=== PATIENT | male | born 1955 | race Caucasian/White ===

== ENCOUNTER 2017-05-06 11:25 | Emergency (ER) | payer MEDICAID ==
[~2017-05-06] VITALS: Ht 175.3 cm; Wt 78.0 kg
[~2017-05-06 11:25] MED LIST: ALBU6.7H INH; ALBUTEROL; AMLO5TAB2 PO; AMOX1TAB64 PO; AZIT250T89 PO; AZIT500T5 PO; CEFD300C37 PO; CLIN150C14 PO; CYCL-259 PO; FLUC200T4 PO; FLUT1DIS IH; FOLI-17 PO; FURO20TA3 PO; HYDR-3237 PO; HYDR-3240 PO; HYDR-3307 PO; HYDR-3341 PO; HYDR453.3 TP; IPRA14.7; LISI-167 PO; METR500T PO; MOTRIN PO; MULT-484 PO; NYST60PO TP; OMEP-110 PO; POTA20TA14 PO; PRED10TA PO; PRED20TA PO; THIA100T6 PO; [UNRECOGNIZED DRUG - REMARK]
[2017-05-06 11:27] VITALS: BP 167/104
[2017-05-06 12:27] LABS: HEMATOCRIT 42.1 % (39.2-51.8); HEMOGLOBIN 14.1 g/dL (13.7-18.0); WHITE BLOOD COUNT 11.7 x10^3/uL (3.4-10)
[2017-05-06] MEDS ORDERED: SODIUM CHLORIDE FLUSH 10ML SYR IVF ONE (12:30)
[2017-05-06] MEDS ORDERED: SODIUM CHLORIDE 0.9% 1,000ML IVBOLUS ONE (12:30)
[2017-05-06 12:41] LABS: ASPARTATE AMINO TRANSFERASE 18 U/L (15-37); BLOOD UREA NITROGEN 19 mg/dL (7-18)
[2017-05-06 12:47] LABS: IS PT STATUS REG ER OR PRE ER? YES
[2017-05-06] MEDS ORDERED: MAALOX/HYOSCYAMINE/LIDOCAINE 45 ML BTL PO ONE (14:30)
[2017-05-06] MEDS ORDERED: MAALOX/HYOSCYAMINE/LIDOCAINE 45 ML BTL ONE (14:31)
== END 2017-05-06 16:20 | disposition home or self-care (01) ==
LOC: ED 12:03
DX: R07.89 Other chest pain (principal); R11.0 Nausea; R06.00 Dyspnea, unspecified; I10 Essential (primary) hypertension; J44.0 Chronic obstructive pulmonary disease with (acute) lower respiratory infection; K21.9 Gastro-esophageal reflux disease without esophagitis; N28.9 Disorder of kidney and ureter, unspecified
CPT/HCPCS: 36415; 74022; 76700; 80053; 83690; 84484; 85025; 85610; 85730; 93005; 96360; 96361; 99285; J7030

== ENCOUNTER 2017-07-01 16:41 | Emergency (ER) | payer MEDICAID ==
[~2017-07-01] VITALS: Ht 177.8 cm; Wt 75.0 kg
[2017-07-01 16:57] VITALS: BP 153/92
== END 2017-07-01 20:20 | disposition home or self-care (01) ==
LOC: ED 16:53
DX: F10.229 Alcohol dependence with intoxication, unspecified (principal); F19.10 Other psychoactive substance abuse, uncomplicated; Z00.00 Encounter for general adult medical examination without abnormal findings; K21.9 Gastro-esophageal reflux disease without esophagitis; I10 Essential (primary) hypertension; J44.9 Chronic obstructive pulmonary disease, unspecified
CPT/HCPCS: 71010; 99283

== ENCOUNTER 2017-07-19 17:30 | Emergency (ER) | payer MEDICAID ==
[~2017-07-19] VITALS: Ht 175.3 cm; Wt 72.6 kg
[2017-07-19 18:26] LABS: HEMATOCRIT 39.7 % (39.2-51.8); HEMOGLOBIN 13.6 g/dL (13.7-18.0); WHITE BLOOD COUNT 8.4 x10^3/uL (3.4-10)
[2017-07-19 18:39] LABS: ASPARTATE AMINO TRANSFERASE 23 U/L (15-37); BLOOD UREA NITROGEN 15 mg/dL (7-18)
[2017-07-19 18:44] LABS: IS PT STATUS REG ER OR PRE ER? YES
[2017-07-19] MEDS ORDERED: MAALOX/HYOSCYAMINE/LIDOCAINE 45 ML BTL PO ONE (19:30)
[2017-07-19] MEDS ORDERED: MAALOX/HYOSCYAMINE/LIDOCAINE 45 ML BTL ONE (19:39)
[2017-07-19 19:47] VITALS: BP 135/73
== END 2017-07-19 21:45 | disposition home or self-care (01) ==
LOC: ED 21:39
DX: R07.89 Other chest pain (principal); R10.13 Epigastric pain; F10.229 Alcohol dependence with intoxication, unspecified; F17.210 Nicotine dependence, cigarettes, uncomplicated; I11.9 Hypertensive heart disease without heart failure; I51.7 Cardiomegaly; J44.9 Chronic obstructive pulmonary disease, unspecified; K21.9 Gastro-esophageal reflux disease without esophagitis; Z59.0 Homelessness
CPT/HCPCS: 36415; 71010; 80053; 81003; 83690; 84484; 85025; 93005; 99285

== ENCOUNTER 2017-08-16 19:44 | Emergency (ER) | payer MEDICAID ==
[~2017-08-16] VITALS: Ht 175.3 cm; Wt 70.0 kg
[2017-08-16 23:11] VITALS: BP 118/80
== END 2017-08-17 00:25 | disposition home or self-care (01) ==
LOC: ED 20:22
DX: F10.20 Alcohol dependence, uncomplicated (principal); G89.29 Other chronic pain; M79.662 Pain in left lower leg; R05 Cough; K21.9 Gastro-esophageal reflux disease without esophagitis; J44.9 Chronic obstructive pulmonary disease, unspecified
CPT/HCPCS: 71010; 93970; 99284

== ENCOUNTER 2017-08-22 10:44 | Emergency (ER) | payer MEDICAID ==
[~2017-08-22] VITALS: Ht 175.3 cm; Wt 68.5 kg
[2017-08-22 10:53] VITALS: BP 158/95
[2017-08-22] MEDS ORDERED: ALBUTEROL/IPRATROPIUM 2.5MG/0.5MG, 3 ML NPPB SCH (11:30)
[2017-08-22] MEDS ORDERED: ALBUTEROL/IPRATROPIUM 2.5MG/0.5MG, 3 ML ONE (11:48)
[2017-08-22 11:49] LABS: ALBUMIN 3.7 g/dL (3.4-5.0); CALCIUM 8.7 mg/dL (8.5-10.1); CHLORIDE 108 mmol/L (98-107)
[2017-08-22 11:57] LABS: ALANINE AMINOTRANSFERASE 54 U/L (12-78); ALKALINE PHOSPHATASE 85 U/L (45-117); ANION GAP 9 mmol/L (5-15); BILIRUBIN,TOTAL 0.3 mg/dL (0.2-1.0); CREATININE 0.99 mg/dL (0.7-1.3)
[2017-08-22 12:16] LABS: MEAN CORPUSCULAR HEMOGLOBIN 29.8 pg (27.5-34.5); MEAN CORPUSCULAR HGB CONC 33.2 g/dL (33.2-36.2); MEAN CORPUSCULAR VOLUME 89.7 fL (81-97); MEAN PLATELET VOLUME 7.8 fL (7.4-10.4); PLATELET COUNT 283 x10^3/uL (130-400); RED BLOOD COUNT 4.61 x10^6/uL (4.38-5.82); RED CELL DISTRIBUTION WIDTH 16.7 % (9.4-14.8)
[2017-08-22 12:17] LABS: MD SCAN
[2017-08-22 12:18] LABS: BASOPHILS # (AUTO) 0.03 x10^3/uL (0-0.1); BASOPHILS % (AUTO) 0 % (0-1); EOSINOPHILS # (AUTO) 0.24 x10^3/uL (0-0.4); EOSINOPHILS % (AUTO) 3 % (1-7); LYMPHOCYTES # (AUTO) 2.62 x10^3/uL (1-3.4); LYMPHOCYTES % (AUTO) 30 % (22-44); MONOCYTES # (AUTO) 0.46 x10^3/uL (0.2-0.8); MONOCYTES % (AUTO) 5 % (2-9); NEUTROPHILS # (AUTO) 5.29 x10^3/uL (1.8-6.8); NEUTROPHILS % (AUTO) 61 % (42-75)
== END 2017-08-22 13:31 | disposition left against medical advice (07) ==
LOC: ED 13:25
DX: J06.9 Acute upper respiratory infection, unspecified (principal); J44.9 Chronic obstructive pulmonary disease, unspecified; I11.9 Hypertensive heart disease without heart failure; I51.7 Cardiomegaly; K21.9 Gastro-esophageal reflux disease without esophagitis; F17.210 Nicotine dependence, cigarettes, uncomplicated; F10.20 Alcohol dependence, uncomplicated
CPT/HCPCS: 36415; 71046; 80053; 83690; 83880; 85025; 93005; 94640; 99285; J7512; J7620

== ENCOUNTER 2017-08-23 12:40 | Emergency (ER) | payer MEDICAID ==
[~2017-08-23] VITALS: Ht 175.3 cm; Wt 68.0 kg
[2017-08-23 20:38] VITALS: BP 132/74
== END 2017-08-23 20:42 | disposition home or self-care (01) ==
LOC: ED 13:54
DX: F10.220 Alcohol dependence with intoxication, uncomplicated (principal); I10 Essential (primary) hypertension; J44.9 Chronic obstructive pulmonary disease, unspecified; K21.9 Gastro-esophageal reflux disease without esophagitis
CPT/HCPCS: 99283

== ENCOUNTER 2017-09-26 16:08 | Emergency (ER) | payer MEDICAID ==
[~2017-09-26] VITALS: Ht 175.3 cm; Wt 75.0 kg
[2017-09-26] MEDS ORDERED: SODIUM CHLORIDE 0.9% 1,000 ML IV ONE (16:22)
[2017-09-26] MEDS ORDERED: ASPIRIN 81 MG TABLET CHEW PO ONE (16:30)
[2017-09-26] MEDS ORDERED: SODIUM CHLORIDE FLUSH 10ML SYR IVF ONE (16:30)
[2017-09-26 17:00] LABS: BASOPHILS # (AUTO) 0.13 x10^3/uL (0-0.1); BASOPHILS % (AUTO) 2 % (0-1); EOSINOPHILS # (AUTO) 0.23 x10^3/uL (0-0.4); EOSINOPHILS % (AUTO) 3 % (1-7); LYMPHOCYTES % (AUTO) 38 % (22-44); MD NO; MEAN CORPUSCULAR HEMOGLOBIN 29.1 pg (27.5-34.5); MEAN CORPUSCULAR HGB CONC 32.2 g/dL (33.2-36.2); MEAN CORPUSCULAR VOLUME 90.5 fL (81-97); MEAN PLATELET VOLUME 7.6 fL (7.4-10.4); MONOCYTES # (AUTO) 0.39 x10^3/uL (0.2-0.8); MONOCYTES % (AUTO) 5 % (2-9); NEUTROPHILS # (AUTO) 3.97 x10^3/uL (1.8-6.8); NEUTROPHILS % (AUTO) 52 % (42-75); PLATELET COUNT 389 x10^3/uL (130-400); RED BLOOD COUNT 4.69 x10^6/uL (4.38-5.82); RED CELL DISTRIBUTION WIDTH 17.5 % (9.4-14.8)
[2017-09-26 17:17] LABS: ALANINE AMINOTRANSFERASE 37 U/L (12-78); ALBUMIN 3.7 g/dL (3.4-5.0); ANION GAP 11 mmol/L (5-15); CALCIUM 8.4 mg/dL (8.5-10.1); CHLORIDE 108 mmol/L (98-107); CREATININE 1.07 mg/dL (0.7-1.3)
[2017-09-26 17:21] LABS: ALKALINE PHOSPHATASE 107 U/L (45-117); BILIRUBIN,TOTAL 0.3 mg/dL (0.2-1.0); TOTAL PROTEIN 7.4 g/dL (6.4-8.2); TROPONIN I < 0.015 ng/mL (0.000-0.045)
[2017-09-26] MEDS ORDERED: OMNIPAQUE 350 MG/ML, 75ML BOTTLE ONE (18:28)
[2017-09-26 18:40] VITALS: BP 172/83
== END 2017-09-26 19:23 | disposition home or self-care (01) ==
LOC: ED 19:11
DX: B34.9 Viral infection, unspecified (principal); B35.6 Tinea cruris; J44.9 Chronic obstructive pulmonary disease, unspecified; K21.9 Gastro-esophageal reflux disease without esophagitis; I10 Essential (primary) hypertension
CPT/HCPCS: 36415; 71045; 71260; 80053; 83690; 84484; 85025; 93005; 99285; Q9967

== ENCOUNTER 2017-09-27 10:04 | Emergency (ER) | payer MEDICAID ==
[~2017-09-27] VITALS: Ht 175.3 cm; Wt 75.0 kg
[2017-09-27 10:53] LABS: BASOPHILS # (AUTO) 0.15 x10^3/uL (0-0.1); BASOPHILS % (AUTO) 2 % (0-1); EOSINOPHILS # (AUTO) 0.24 x10^3/uL (0-0.4); EOSINOPHILS % (AUTO) 2 % (1-7); LYMPHOCYTES # (AUTO) 3.94 x10^3/uL (1-3.4); LYMPHOCYTES % (AUTO) 40 % (22-44); MD NO; MEAN CORPUSCULAR HEMOGLOBIN 29.8 pg (27.5-34.5); MEAN CORPUSCULAR HGB CONC 33.2 g/dL (33.2-36.2); MEAN CORPUSCULAR VOLUME 89.8 fL (81-97); MEAN PLATELET VOLUME 7.6 fL (7.4-10.4); MONOCYTES # (AUTO) 0.52 x10^3/uL (0.2-0.8); MONOCYTES % (AUTO) 5 % (2-9); NEUTROPHILS # (AUTO) 4.97 x10^3/uL (1.8-6.8); NEUTROPHILS % (AUTO) 51 % (42-75); PLATELET COUNT 366 x10^3/uL (130-400); RED BLOOD COUNT 4.62 x10^6/uL (4.38-5.82); RED CELL DISTRIBUTION WIDTH 17.3 % (9.4-14.8)
[2017-09-27 11:00] LABS: ALBUMIN 3.7 g/dL (3.4-5.0); ANION GAP 12 mmol/L (5-15); CALCIUM 8.7 mg/dL (8.5-10.1); CHLORIDE 106 mmol/L (98-107)
[2017-09-27 11:04] LABS: ALANINE AMINOTRANSFERASE 39 U/L (12-78); ALKALINE PHOSPHATASE 110 U/L (45-117); BILIRUBIN,TOTAL 0.5 mg/dL (0.2-1.0); CREATININE 1.07 mg/dL (0.7-1.3); TOTAL PROTEIN 7.2 g/dL (6.4-8.2)
[2017-09-27 14:00] VITALS: BP 115/58
== END 2017-09-27 14:02 | disposition home or self-care (01) ==
LOC: ED 10:25
DX: F10.220 Alcohol dependence with intoxication, uncomplicated (principal); F19.10 Other psychoactive substance abuse, uncomplicated; B35.6 Tinea cruris; J44.9 Chronic obstructive pulmonary disease, unspecified; K21.9 Gastro-esophageal reflux disease without esophagitis; I10 Essential (primary) hypertension
CPT/HCPCS: 36415; 80053; 80307; 83690; 85025; 99284

== ENCOUNTER 2017-09-30 18:29 | Emergency (ER) | payer MEDICAID ==
[~2017-09-30] VITALS: Ht 175.3 cm; Wt 75.0 kg
[2017-09-30] MEDS ORDERED: SODIUM CHLORIDE 0.9% 1,000ML IVBOLUS ONE (19:30)
[2017-09-30] MEDS ORDERED: OMNIPAQUE 350 MG/ML, 100ML BOTTLE ONE (19:58)
[2017-09-30] MEDS ORDERED: CHLORDIAZEPOXIDE 25 MG CAPSULE ONE (21:52)
[2017-09-30] MEDS ORDERED: CHLORDIAZEPOXIDE 25 MG CAPSULE PO ONE (22:00)
[2017-09-30 22:31] VITALS: BP 131/75
== END 2017-09-30 22:54 | disposition home or self-care (01) ==
LOC: ED 18:56
DX: F10.220 Alcohol dependence with intoxication, uncomplicated (principal); J44.9 Chronic obstructive pulmonary disease, unspecified; K21.9 Gastro-esophageal reflux disease without esophagitis; I10 Essential (primary) hypertension
CPT/HCPCS: 71275; 93005; 96360; 96361; 99285; J7030; Q9967

== ENCOUNTER 2017-10-01 02:35 | Emergency (ER) | payer MEDICAID ==
[~2017-10-01] VITALS: Ht 175.3 cm; Wt 68.0 kg
[2017-10-01 03:15] LABS: ANION GAP 16 mmol/L (5-15); CHLORIDE 104 mmol/L (98-107)
[2017-10-01 03:16] LABS: CREATININE 1.23 mg/dL (0.7-1.3)
[2017-10-01] MEDS ORDERED: MAGNESIUM SULFATE 1 GM, THIAMINE 100 MG, FOLIC ACID 1 MG, MVI ADULT 10 ML in SODIUM CHL... IV ONE (04:00)
[2017-10-01] MEDS ORDERED: ALBUTEROL SULFATE 2.5 MG/3 ML NPPB ONE (05:00)
[2017-10-01] MEDS ORDERED: ALBUTEROL SULFATE 2.5 MG/3 ML ONE (05:12)
[2017-10-01 09:53] VITALS: BP 111/61
== END 2017-10-01 10:06 | disposition home or self-care (01) ==
LOC: ED 02:40
DX: F10.221 Alcohol dependence with intoxication delirium (principal); E83.42 Hypomagnesemia; J44.9 Chronic obstructive pulmonary disease, unspecified; K21.9 Gastro-esophageal reflux disease without esophagitis; I10 Essential (primary) hypertension
CPT/HCPCS: 36415; 80048; 80307; 83735; 93005; 94640; 96365; 96366; 99285; J3411; J3475; J7030; J7613

== ENCOUNTER 2017-10-01 17:52 | Emergency (ER) | payer MEDICAID ==
[~2017-10-01] VITALS: Ht 175.3 cm; Wt 69.0 kg
[2017-10-01 19:11] VITALS: BP 135/80
== END 2017-10-01 19:55 | disposition home or self-care (01) ==
LOC: ED 19:34
DX: F10.20 Alcohol dependence, uncomplicated (principal); Z72.89 Other problems related to lifestyle
CPT/HCPCS: 93005; 99283

== ENCOUNTER 2017-11-09 11:06 | Inpatient (IN) | payer MEDICAID ==
[~2017-11-09] VITALS: Ht 175.3 cm; Wt 66.1 kg
[2017-11-09] MEDS ORDERED: ONDANSETRON 2MG/ML, 2ML IVPush ONE (12:00)
[2017-11-09] MEDS: MAGNESIUM SULFATE 1 GM, THIAMINE 100 MG, FOLIC ACID 1 MG, MVI ADULT 10 ML in SODIUM CHL... IV ONE ×2 (12:00→14:41)
[2017-11-09] MEDS ORDERED: methylPREDNISolone SOD SUCC 125 MG/2 ML IVPush ONE (12:00)
[2017-11-09] MEDS ORDERED: SODIUM CHLORIDE 0.9% 1,000ML IVBOLUS ONE (12:00)
[2017-11-09] MEDS ORDERED: SODIUM CHLORIDE FLUSH 10ML SYR IVF ONE (12:00)
[2017-11-09] MEDS ORDERED: LORazepam 2 MG/ML, 1ML IVPush ONE (12:00)
[2017-11-09] MEDS ORDERED: ALBUTEROL/IPRATROPIUM 2.5MG/0.5MG, 3 ML NPPB ONE (12:00)
[2017-11-09] MEDS ORDERED: methylPREDNISolone SOD SUCC 125 MG/2 ML ONE (12:05)
[2017-11-09] MEDS ORDERED: ONDANSETRON 2MG/ML, 2ML ONE (12:05)
[2017-11-09] MEDS ORDERED: LORazepam 2 MG/ML, 1ML ONE ×2 (12:05→14:44)
[2017-11-09 12:17] LABS: CHLORIDE 93 mmol/L (98-107)
[2017-11-09 12:23] LABS: ALANINE AMINOTRANSFERASE 96 U/L (12-78); ALKALINE PHOSPHATASE 135 U/L (45-117); ANION GAP 18 mmol/L (5-15); CALCIUM 9.2 mg/dL (8.5-10.1); TOTAL PROTEIN 7.8 g/dL (6.4-8.2)
[2017-11-09 12:26] LABS: MEAN CORPUSCULAR HEMOGLOBIN 30.9 pg (27.5-34.5); MEAN CORPUSCULAR HGB CONC 34.2 g/dL (33.2-36.2); MEAN CORPUSCULAR VOLUME 90.3 fL (81-97); PLATELET COUNT 79 x10^3/uL (130-400); RED BLOOD COUNT 4.72 x10^6/uL (4.38-5.82); RED CELL DISTRIBUTION WIDTH 17.9 % (9.4-14.8)
[2017-11-09 12:28] LABS: BASOPHILS # (AUTO) 0.01 x10^3/uL (0-0.1); BASOPHILS % (AUTO) 0 % (0-1); EOSINOPHILS # (AUTO) 0.01 x10^3/uL (0-0.4); EOSINOPHILS % (AUTO) 0 % (1-7); LYMPHOCYTES # (AUTO) 1.24 x10^3/uL (1-3.4); LYMPHOCYTES % (AUTO) 14 % (22-44); MD SCAN; MONOCYTES # (AUTO) 0.21 x10^3/uL (0.2-0.8); MONOCYTES % (AUTO) 2 % (2-9); NEUTROPHILS # (AUTO) 7.35 x10^3/uL (1.8-6.8); NEUTROPHILS % (AUTO) 83 % (42-75)
[2017-11-09] MEDS ORDERED: LISI-167 PO (13:55)
[2017-11-09] MEDS: SODIUM CHLORIDE 0.9% 1,000 ML IV SCH (14:21)
[2017-11-09] MEDS ORDERED: LORazepam 0.5MG TABLET PO PRN (14:30)
[2017-11-09] MEDS ORDERED: ONDANSETRON ODT 4 MG PO PRN (14:30)
[2017-11-09] MEDS ORDERED: LORazepam 2 MG/ML, 1ML IV PRN ×3 (14:30)
[2017-11-09] MEDS ORDERED: ONDANSETRON 2MG/ML, 2ML IVPush PRN (14:30)
[2017-11-09] MEDS ORDERED: LORazepam 1MG TABLET PO PRN ×3 (14:30)
[2017-11-09] MEDS: LORazepam 2 MG/ML, 1ML IV PRN ×2 (14:47→23:30)
[2017-11-09] MEDS ORDERED: ALBUTEROL SULFATE 2.5 MG/3 ML NPPB PRN (15:30)
[2017-11-09] MEDS: CHLORDIAZEPOXIDE 10 MG CAPSULE PO SCH ×2 (17:31→21:03)
[2017-11-09] MEDS: NICOTINE 7 MG/24 HR PATCH.TD24 TD SCH (17:31)
[2017-11-09] MEDS: DOXYCYCLINE 100 MG in DEXTROSE 5% 250 ML IV SCH (17:31)
[2017-11-09] MEDS: methylPREDNISolone SOD SUCC 125 MG/2 ML IVPush SCH (17:32)
[2017-11-09] MEDS: ENOXAPARIN 40 MG/0.4 ML SQ SCH (17:32)
[2017-11-09 17:38] LABS: AMPHETAMINE SCREEN, URINE Negative (Negative); BARBITURATE SCREEN, URINE Negative (Negative); BENZODIAZEPINE SCREEN, URINE Negative (Negative); CANNABINOID SCREEN, URINE Negative (Negative); COCAINE SCREEN, URINE Negative (Negative); METHADONE SCREEN, URINE Negative (Negative); OPIATE SCREEN, URINE Negative (Negative)
[2017-11-09 18:41] VITALS: BP 175/102
[2017-11-09] MEDS: FAMOTIDINE 20 MG TABLET PO SCH (21:03)
[2017-11-10] MEDS: methylPREDNISolone SOD SUCC 125 MG/2 ML IVPush SCH ×2 (01:05→08:49)
[2017-11-10 03:06] VITALS: BP 165/95
[2017-11-10] MEDS: DOXYCYCLINE 100 MG in DEXTROSE 5% 250 ML IV SCH ×2 (04:46→16:19)
[2017-11-10 06:15] LABS: MEAN CORPUSCULAR HEMOGLOBIN 30.6 pg (27.5-34.5); MEAN CORPUSCULAR HGB CONC 33.8 g/dL (33.2-36.2); MEAN CORPUSCULAR VOLUME 90.7 fL (81-97); RED BLOOD COUNT 4.58 x10^6/uL (4.38-5.82); RED CELL DISTRIBUTION WIDTH 18.1 % (9.4-14.8)
[2017-11-10 06:19] LABS: CALCIUM 8.6 mg/dL (8.5-10.1); CHLORIDE 96 mmol/L (98-107)
[2017-11-10 06:25] LABS: ALANINE AMINOTRANSFERASE 90 U/L (12-78); ALBUMIN 3.3 g/dL (3.4-5.0); ALKALINE PHOSPHATASE 128 U/L (45-117); ANION GAP 11 mmol/L (5-15); BILIRUBIN,TOTAL 1.8 mg/dL (0.2-1.0); CREATININE 1.11 mg/dL (0.7-1.3); TOTAL PROTEIN 7.6 g/dL (6.4-8.2)
[2017-11-10 07:09] LABS: BASOPHILS # (AUTO) 0.01 x10^3/uL (0-0.1); BASOPHILS % (AUTO) 0 % (0-1); EOSINOPHILS % (AUTO) 0 % (1-7); LYMPHOCYTES # (AUTO) 0.84 x10^3/uL (1-3.4); LYMPHOCYTES % (AUTO) 15 % (22-44); MD SCAN; MEAN PLATELET VOLUME 9.5 fL (7.4-10.4); MONOCYTES # (AUTO) 0.13 x10^3/uL (0.2-0.8); MONOCYTES % (AUTO) 3 % (2-9); NEUTROPHILS # (AUTO) 4.43 x10^3/uL (1.8-6.8); NEUTROPHILS % (AUTO) 82 % (42-75); PLATELET COUNT 91 x10^3/uL (130-400)
[2017-11-10 07:15] VITALS: BP 152/105
[2017-11-10] MEDS: CHLORDIAZEPOXIDE 10 MG CAPSULE PO SCH (07:43)
[2017-11-10] MEDS: FAMOTIDINE 20 MG TABLET PO SCH ×2 (08:49→21:04)
[2017-11-10] MEDS: LISINOPRIL 10 MG TABLET PO SCH (08:49)
[2017-11-10] MEDS: SODIUM CHLORIDE 0.9% 1,000 ML IV SCH ×2 (08:50→15:50)
[2017-11-10] MEDS ORDERED: POTASSIUM CHLORIDE 20 MEQ, MAGNESIUM SULFATE 1 GM, THIAMINE 100 MG, FOLIC ACID 1 MG, MV... IV SCH (14:00)
[2017-11-10 14:21] VITALS: BP 136/91
[2017-11-10] MEDS: ENOXAPARIN 40 MG/0.4 ML SQ SCH (16:17)
[2017-11-10] MEDS: NICOTINE 7 MG/24 HR PATCH.TD24 TD SCH (16:18)
[2017-11-10 19:46] VITALS: BP 148/88
[2017-11-10] MEDS: GUAIFENESIN ER 600 MG TABLET PO SCH (21:04)
[2017-11-10] MEDS: LORazepam 2 MG/ML, 1ML IVPush PRN (22:05)
[2017-11-11 02:42] VITALS: BP 144/87
[2017-11-11] MEDS: LORazepam 2 MG/ML, 1ML IVPush PRN ×3 (02:44→18:05)
[2017-11-11] MEDS: SODIUM CHLORIDE 0.9% 1,000 ML IV SCH ×2 (02:44→13:41)
[2017-11-11] MEDS: DOXYCYCLINE 100 MG in DEXTROSE 5% 250 ML IV SCH ×2 (04:55→16:09)
[2017-11-11 05:28] LABS: CHLORIDE 101 mmol/L (98-107)
[2017-11-11 05:39] LABS: ALANINE AMINOTRANSFERASE 101 U/L (12-78); ALBUMIN 2.9 g/dL (3.4-5.0); ALKALINE PHOSPHATASE 99 U/L (45-117); ANION GAP 8 mmol/L (5-15); BILIRUBIN,TOTAL 0.9 mg/dL (0.2-1.0); CALCIUM 8.4 mg/dL (8.5-10.1); CREATININE 1.01 mg/dL (0.7-1.3); TOTAL PROTEIN 6.1 g/dL (6.4-8.2)
[2017-11-11 05:48] LABS: MEAN CORPUSCULAR HEMOGLOBIN 30.9 pg (27.5-34.5); MEAN CORPUSCULAR HGB CONC 33.5 g/dL (33.2-36.2); MEAN CORPUSCULAR VOLUME 92.2 fL (81-97); RED BLOOD COUNT 4.15 x10^6/uL (4.38-5.82); RED CELL DISTRIBUTION WIDTH 17.5 % (9.4-14.8)
[2017-11-11 06:15] LABS: BASOPHILS % (AUTO) 0 % (0-1); EOSINOPHILS # (AUTO) 0.01 x10^3/uL (0-0.4); EOSINOPHILS % (AUTO) 0 % (1-7); LYMPHOCYTES # (AUTO) 2.02 x10^3/uL (1-3.4); LYMPHOCYTES % (AUTO) 20 % (22-44); MD SCAN; MEAN PLATELET VOLUME 10.1 fL (7.4-10.4); MONOCYTES # (AUTO) 0.42 x10^3/uL (0.2-0.8); MONOCYTES % (AUTO) 4 % (2-9); NEUTROPHILS # (AUTO) 7.77 x10^3/uL (1.8-6.8); NEUTROPHILS % (AUTO) 76 % (42-75); PLATELET COUNT 79 x10^3/uL (130-400)
[2017-11-11 06:38] VITALS: BP 153/92
[2017-11-11] MEDS: GUAIFENESIN ER 600 MG TABLET PO SCH ×2 (08:38→20:10)
[2017-11-11] MEDS: LISINOPRIL 10 MG TABLET PO SCH (08:38)
[2017-11-11] MEDS: THIAMINE 100MG TABLET PO SCH (08:39)
[2017-11-11] MEDS: FAMOTIDINE 20 MG TABLET PO SCH ×2 (08:39→20:10)
[2017-11-11] MEDS: MULTIVITAMIN 1 TABLET PO SCH (08:39)
[2017-11-11] MEDS: FOLIC ACID 1 MG TABLET PO SCH (08:39)
[2017-11-11] MEDS ORDERED: ACETAMINOPHEN 325 MG TABLET PO PRN (15:00)
[2017-11-11 15:15] VITALS: BP 173/112
[2017-11-11] MEDS: POTASSIUM CHLORIDE 20 MEQ TAB.ER.PRT PO SCH (16:10)
[2017-11-11] MEDS: NICOTINE 7 MG/24 HR PATCH.TD24 TD SCH (16:10)
[2017-11-11] MEDS: ENOXAPARIN 40 MG/0.4 ML SQ SCH (16:11)
[2017-11-11 20:26] VITALS: BP 152/88
[2017-11-12] MEDS: LORazepam 2 MG/ML, 1ML IVPush PRN ×2 (00:16→09:51)
[2017-11-12] MEDS: SODIUM CHLORIDE 0.9% 1,000 ML IV SCH ×2 (00:17→09:00)
[2017-11-12 03:00] VITALS: BP 169/112
[2017-11-12] MEDS: DOXYCYCLINE 100 MG in DEXTROSE 5% 250 ML IV SCH ×2 (04:40→16:55)
[2017-11-12 05:34] LABS: BASOPHILS % (AUTO) 0 % (0-1); EOSINOPHILS # (AUTO) 0.03 x10^3/uL (0-0.4); EOSINOPHILS % (AUTO) 0 % (1-7); LYMPHOCYTES # (AUTO) 1.86 x10^3/uL (1-3.4); LYMPHOCYTES % (AUTO) 22 % (22-44); MD NO; MEAN CORPUSCULAR HEMOGLOBIN 30.9 pg (27.5-34.5); MEAN CORPUSCULAR HGB CONC 33.6 g/dL (33.2-36.2); MEAN CORPUSCULAR VOLUME 92.1 fL (81-97); MEAN PLATELET VOLUME 9.5 fL (7.4-10.4); MONOCYTES # (AUTO) 0.42 x10^3/uL (0.2-0.8); MONOCYTES % (AUTO) 5 % (2-9); NEUTROPHILS % (AUTO) 72 % (42-75); PLATELET COUNT 117 x10^3/uL (130-400); RED BLOOD COUNT 3.98 x10^6/uL (4.38-5.82); RED CELL DISTRIBUTION WIDTH 17.2 % (9.4-14.8)
[2017-11-12 05:40] LABS: CHLORIDE 103 mmol/L (98-107)
[2017-11-12 05:41] VITALS: BP 153/91
[2017-11-12 05:47] LABS: ANION GAP 10 mmol/L (5-15); CALCIUM 8.3 mg/dL (8.5-10.1); CREATININE 1.15 mg/dL (0.7-1.3)
[2017-11-12 09:00] VITALS: BP 151/96
[2017-11-12] MEDS: MULTIVITAMIN 1 TABLET PO SCH (09:48)
[2017-11-12] MEDS: POTASSIUM CHLORIDE 20 MEQ TAB.ER.PRT PO SCH ×2 (09:48→16:55)
[2017-11-12] MEDS: FAMOTIDINE 20 MG TABLET PO SCH ×2 (09:48→20:42)
[2017-11-12] MEDS: GUAIFENESIN ER 600 MG TABLET PO SCH ×2 (09:49→20:42)
[2017-11-12] MEDS: THIAMINE 100MG TABLET PO SCH (09:49)
[2017-11-12] MEDS: FOLIC ACID 1 MG TABLET PO SCH (09:50)
[2017-11-12] MEDS: LISINOPRIL 10 MG TABLET PO SCH (09:50)
[2017-11-12] MEDS: LORazepam 1MG TABLET PO PRN ×2 (10:06→17:10)
[2017-11-12] MEDS ORDERED: LORazepam 2 MG/ML, 1ML IV PRN (11:30)
[2017-11-12 13:48] VITALS: BP 145/91
[2017-11-12] MEDS: NICOTINE 7 MG/24 HR PATCH.TD24 TD SCH (16:00)
[2017-11-12] MEDS: ENOXAPARIN 40 MG/0.4 ML SQ SCH (16:55)
[2017-11-12 20:26] VITALS: BP 136/88
[2017-11-13] MEDS: LORazepam 1MG TABLET PO PRN (00:07)
[2017-11-13 00:57] VITALS: BP 146/94
[2017-11-13] MEDS: DOXYCYCLINE 100 MG in DEXTROSE 5% 250 ML IV SCH ×2 (04:41→16:55)
[2017-11-13 06:54] LABS: ALANINE AMINOTRANSFERASE 221 U/L (12-78); ALBUMIN 2.9 g/dL (3.4-5.0); ANION GAP 8 mmol/L (5-15); CALCIUM 8.3 mg/dL (8.5-10.1); CHLORIDE 102 mmol/L (98-107); CREATININE 1.11 mg/dL (0.7-1.3)
[2017-11-13 06:56] LABS: ALKALINE PHOSPHATASE 92 U/L (45-117); BILIRUBIN,TOTAL 0.6 mg/dL (0.2-1.0); TOTAL PROTEIN 6.1 g/dL (6.4-8.2)
[2017-11-13] MEDS ORDERED: MAGNESIUM SULFATE PMX 4GM/100M 100 ML IV ONE (07:30)
[2017-11-13 07:39] VITALS: BP 129/88
[2017-11-13] MEDS: GUAIFENESIN ER 600 MG TABLET PO SCH ×2 (08:22→21:31)
[2017-11-13] MEDS: LISINOPRIL 10 MG TABLET PO SCH (08:23)
[2017-11-13] MEDS: FOLIC ACID 1 MG TABLET PO SCH (08:23)
[2017-11-13] MEDS: THIAMINE 100MG TABLET PO SCH (08:23)
[2017-11-13] MEDS: MULTIVITAMIN 1 TABLET PO SCH (08:23)
[2017-11-13] MEDS: FAMOTIDINE 20 MG TABLET PO SCH ×2 (08:27→21:31)
[2017-11-13 13:56] VITALS: BP 132/82
[2017-11-13] MEDS ORDERED: CETIRIZINE 10 MG TABLET PO PRN (16:00)
[2017-11-13] MEDS: NICOTINE 7 MG/24 HR PATCH.TD24 TD SCH (16:00)
[2017-11-13] MEDS: ENOXAPARIN 40 MG/0.4 ML SQ SCH (16:55)
[2017-11-13 20:00] VITALS: BP 113/70
[2017-11-13] MEDS: IBUPROFEN 200 MG TABLET PO PRN (21:41)
[2017-11-14 02:48] VITALS: BP 116/79
[2017-11-14] MEDS: DOXYCYCLINE 100 MG in DEXTROSE 5% 250 ML IV SCH (04:30)
[2017-11-14] MEDS: IBUPROFEN 200 MG TABLET PO PRN ×2 (06:28→11:34)
[2017-11-14] MEDS ORDERED: FOLI-17 PO (07:22)
[2017-11-14] MEDS ORDERED: PRED20TA PO (07:22)
[2017-11-14] MEDS ORDERED: THIA100T6 PO (07:22)
[2017-11-14] MEDS ORDERED: GUAI600T31 PO (07:22)
[2017-11-14] MEDS ORDERED: DOXY100C15 PO (07:22)
[2017-11-14] MEDS ORDERED: CETI10TA18 PO (07:22)
[2017-11-14 08:17] VITALS: BP 119/69
[2017-11-14] MEDS: MULTIVITAMIN 1 TABLET PO SCH (09:15)
[2017-11-14] MEDS: GUAIFENESIN ER 600 MG TABLET PO SCH (09:15)
[2017-11-14] MEDS: FOLIC ACID 1 MG TABLET PO SCH (09:15)
[2017-11-14] MEDS: THIAMINE 100MG TABLET PO SCH (09:15)
[2017-11-14] MEDS: FAMOTIDINE 20 MG TABLET PO SCH (09:15)
[2017-11-14] MEDS: LISINOPRIL 10 MG TABLET PO SCH (09:16)
== END 2017-11-14 12:55 | disposition home or self-care (01) | DRG 189 ==
LOC: ED 13:25 → EDIP 13:26 → ED 13:36 → 4NOR 15:43
PROVIDERS: ADMIT Family Medicine; ATTEND Family Medicine
DX: J96.00 Acute respiratory failure, unspecified whether with hypoxia or hypercapnia (principal); D69.6 Thrombocytopenia, unspecified; K70.9 Alcoholic liver disease, unspecified; E87.1 Hypo-osmolality and hyponatremia; J44.1 Chronic obstructive pulmonary disease with (acute) exacerbation; N28.1 Cyst of kidney, acquired; F10.239 Alcohol dependence with withdrawal, unspecified; E78.5 Hyperlipidemia, unspecified; F17.210 Nicotine dependence, cigarettes, uncomplicated; I10 Essential (primary) hypertension; K21.9 Gastro-esophageal reflux disease without esophagitis; K74.60 Unspecified cirrhosis of liver; L30.9 Dermatitis, unspecified; Z88.8 Allergy status to other drugs, medicaments and biological substances
CPT/HCPCS: 36415; 71045; 76700; 80048; 80053; 80307; 82150; 83690; 83735; 84100; 85025; 93005; 94640; 96361; 96374; 96375; 96376; J1650; J2405; J3411; J3475; J3480; J7060; J7620; Q0162; J2060; J2930; J7030; J7512

== ENCOUNTER 2018-03-01 20:24 | Emergency (ER) | payer MEDICAID ==
[~2018-03-01] VITALS: Ht 175.3 cm; Wt 66.0 kg
[~2018-03-01 20:24] MED LIST changes: +CETI10TA18 PO; +DOXY100C15 PO; +GUAI600T31 PO
[2018-03-01] MEDS ORDERED: SODIUM CHLORIDE 0.9% 1,000ML IVBOLUS ONE (20:30)
[2018-03-01] MEDS ORDERED: SODIUM CHLORIDE FLUSH 10ML SYR IVF ONE (20:30)
[2018-03-01] MEDS ORDERED: THIAMINE 100MG TABLET PO ONE (20:30)
[2018-03-01 20:45] LABS: BASOPHILS # (AUTO) 0.09 x10^3/uL (0-0.1); BASOPHILS % (AUTO) 2 % (0-1); EOSINOPHILS # (AUTO) 0.08 x10^3/uL (0-0.4); EOSINOPHILS % (AUTO) 1 % (1-7); LYMPHOCYTES # (AUTO) 2.34 x10^3/uL (1-3.4); LYMPHOCYTES % (AUTO) 41 % (22-44); MD NO; MEAN CORPUSCULAR HEMOGLOBIN 31.6 pg (27.5-34.5); MEAN CORPUSCULAR HGB CONC 33.8 g/dL (33.2-36.2); MEAN CORPUSCULAR VOLUME 93.3 fL (81-97); MONOCYTES # (AUTO) 0.59 x10^3/uL (0.2-0.8); MONOCYTES % (AUTO) 10 % (2-9); NEUTROPHILS # (AUTO) 2.62 x10^3/uL (1.8-6.8); NEUTROPHILS % (AUTO) 46 % (42-75); PLATELET COUNT 264 x10^3/uL (130-400); RED BLOOD COUNT 4.41 x10^6/uL (4.38-5.82); RED CELL DISTRIBUTION WIDTH 16.2 % (9.4-14.8)
[2018-03-01 20:53] LABS: INTERNATIONAL NORMALIZED RATIO 0.97 (0.93-1.1); PROTHROMBIN TIME 10.1 Seconds (9.6-11.5)
[2018-03-01 20:56] LABS: ALANINE AMINOTRANSFERASE 60 U/L (12-78); ALBUMIN 3.5 g/dL (3.4-5.0); ANION GAP 11 mmol/L (5-15); CALCIUM 7.8 mg/dL (8.5-10.1); CHLORIDE 111 mmol/L (98-107); CREATININE 1.22 mg/dL (0.7-1.3)
[2018-03-01 20:58] LABS: ALKALINE PHOSPHATASE 106 U/L (45-117); BILIRUBIN,TOTAL 0.3 mg/dL (0.2-1.0); TOTAL PROTEIN 6.7 g/dL (6.4-8.2)
[2018-03-01] MEDS ORDERED: PLEASE ENTER HEIGHT AND WEIGHT MC SCH (21:00)
[2018-03-01] MEDS ORDERED: ALBUTEROL/IPRATROPIUM 2.5MG/0.5MG, 3 ML NPPB ONE (21:30)
[2018-03-01 23:01] VITALS: BP 155/90
== END 2018-03-01 23:05 | disposition home or self-care (01) ==
LOC: ED 21:00
DX: F10.129 Alcohol abuse with intoxication, unspecified (principal); J43.9 Emphysema, unspecified; I10 Essential (primary) hypertension; K21.9 Gastro-esophageal reflux disease without esophagitis; F17.200 Nicotine dependence, unspecified, uncomplicated
CPT/HCPCS: 36415; 71045; 80053; 85025; 85610; 94640; 99285; J7030; J7620

== ENCOUNTER 2018-03-15 01:14 | Emergency (ER) | payer MEDICAID ==
[~2018-03-15] VITALS: Ht 175.3 cm; Wt 71.8 kg
[~2018-03-15 01:14] MED LIST changes: +ASPI-515 PO; +ATOR40TA78 PO; +LEVO500T8 PO; +MAGN400T36 PO; +MULT1TAB60 PO; -THIA100T6 PO; +THIA100T67 PO
[2018-03-15 01:40] LABS: BASOPHILS # (AUTO) 0.12 x10^3/uL (0-0.1); BASOPHILS % (AUTO) 2 % (0-1); EOSINOPHILS # (AUTO) 0.14 x10^3/uL (0-0.4); EOSINOPHILS % (AUTO) 2 % (1-7); LYMPHOCYTES # (AUTO) 2.16 x10^3/uL (1-3.4); LYMPHOCYTES % (AUTO) 34 % (22-44); MD NO; MEAN CORPUSCULAR HEMOGLOBIN 31.9 pg (27.5-34.5); MEAN CORPUSCULAR HGB CONC 34.3 g/dL (33.2-36.2); MEAN CORPUSCULAR VOLUME 92.9 fL (81-97); MEAN PLATELET VOLUME 7.7 fL (7.4-10.4); MONOCYTES # (AUTO) 0.93 x10^3/uL (0.2-0.8); MONOCYTES % (AUTO) 15 % (2-9); NEUTROPHILS # (AUTO) 3.01 x10^3/uL (1.8-6.8); NEUTROPHILS % (AUTO) 47 % (42-75); PLATELET COUNT 411 x10^3/uL (130-400); RED BLOOD COUNT 3.64 x10^6/uL (4.38-5.82)
[2018-03-15] MEDS ORDERED: ZIPRASIDONE 20 MG INJ IM ONE ×2 (01:42→02:00)
[2018-03-15 01:51] LABS: ALANINE AMINOTRANSFERASE 55 U/L (12-78); ALBUMIN 3.6 g/dL (3.4-5.0); ANION GAP 10 mmol/L (5-15); CALCIUM 8.7 mg/dL (8.5-10.1); CHLORIDE 102 mmol/L (98-107)
[2018-03-15 01:54] LABS: ACETAMINOPHEN < 2 mcg/mL (10-30); ALKALINE PHOSPHATASE 81 U/L (45-117); BILIRUBIN,TOTAL 0.6 mg/dL (0.2-1.0); TOTAL PROTEIN 6.5 g/dL (6.4-8.2)
[2018-03-15] MEDS ORDERED: LORazepam 2 MG/ML, 1ML ONE (02:30)
[2018-03-15] MEDS ORDERED: LORazepam 2 MG/ML, 1ML IM ONE (02:30)
[2018-03-15] MEDS ORDERED: SODIUM CHLORIDE 0.9% 1,000ML IVBOLUS ONE ×2 (02:30→04:00)
[2018-03-15] MEDS ORDERED: SODIUM CHLORIDE FLUSH 10ML SYR IVF ONE (02:30)
[2018-03-15] MEDS ORDERED: DIPHENHYDRAMINE 50 MG/ML, 1ML IM ONE (02:30)
[2018-03-15] MEDS ORDERED: DIPHENHYDRAMINE 50 MG/ML, 1ML ONE (02:31)
[2018-03-15 03:41] LABS: AMPHETAMINE SCREEN, URINE Negative (Negative); BARBITURATE SCREEN, URINE Negative (Negative); BENZODIAZEPINE SCREEN, URINE Negative (Negative); CANNABINOID SCREEN, URINE Negative (Negative); COCAINE SCREEN, URINE Negative (Negative); METHADONE SCREEN, URINE Negative (Negative); OPIATE SCREEN, URINE Negative (Negative)
[2018-03-15] MEDS ORDERED: MAGNESIUM SULFATE 1 GM, THIAMINE 100 MG, FOLIC ACID 1 MG, MVI ADULT 10 ML in SODIUM CHL... IV ONE (05:00)
[2018-03-15] MEDS ORDERED: NICOTINE 7 MG/24 HR PATCH.TD24 ONE (12:59)
[2018-03-15] MEDS ORDERED: THIAMINE 100MG TABLET ONE (12:59)
[2018-03-15] MEDS ORDERED: CETIRIZINE 10 MG TABLET PO PRN (13:00)
[2018-03-15] MEDS ORDERED: FOLIC ACID 1 MG TABLET PO SCH (13:00)
[2018-03-15] MEDS ORDERED: NICOTINE 7 MG/24 HR PATCH.TD24 TD SCH ×2 (13:00→16:00)
[2018-03-15] MEDS ORDERED: ACETAMINOPHEN 325 MG TABLET PO PRN ×2 (13:00→16:00)
[2018-03-15] MEDS ORDERED: AMLODIPINE 5 MG TABLET PO SCH (13:00)
[2018-03-15] MEDS ORDERED: ZIPRASIDONE 20 MG INJ IM PRN (13:00)
[2018-03-15] MEDS ORDERED: MULTIVITAMINS/MINERALS TABLET PO SCH (13:00)
[2018-03-15] MEDS ORDERED: THIAMINE 100MG TABLET PO SCH (13:00)
[2018-03-15] MEDS ORDERED: ONDANSETRON ODT 4 MG PO PRN (13:00)
[2018-03-15] MEDS ORDERED: DIPHENHYDRAMINE 50 MG CAPSULE PO PRN (13:00)
[2018-03-15] MEDS ORDERED: LORazepam 1MG TABLET ONE (14:05)
[2018-03-15] MEDS: LORazepam 1MG TABLET PO PRN ×2 (14:06→21:27)
[2018-03-15] MEDS ORDERED: POLYETHYLENE GLYCOL 17 GM PACKET PO PRN (16:00)
[2018-03-15] MEDS ORDERED: BISACODYL 10 MG SUPP PR PRN (16:00)
[2018-03-15] MEDS ORDERED: DOCUSATE 100 MG CAPSULE PO PRN (16:00)
[2018-03-15 17:38] VITALS: BP 138/84
[2018-03-15 19:28] LABS: MICROSCOPIC NOT IND
[2018-03-15 19:33] LABS: CULTURE INDICATED? NO
[2018-03-15 19:50] VITALS: BP 132/81
[2018-03-15 20:19] VITALS: BP 112/76
[2018-03-15] MEDS ORDERED: ATORVASTATIN 40 MG TABLET PO SCH (21:00)
[2018-03-15] MEDS ORDERED: GUAIFENESIN ER 600 MG TABLET PO SCH (21:00)
[2018-03-16] MEDS ORDERED: ASPIRIN 81 MG TABLET EC PO SCH (09:00)
[2018-03-16] MEDS ORDERED: LISINOPRIL 10 MG TABLET PO SCH (09:00)
== END 2018-03-15 22:02 | disposition other institution (70) ==
LOC: ED 01:20 → EDIP 11:26 → UNDOADMOB 11:26 → EDIP 15:11 → 3E 15:11 → OBSVTOIN 15:45 → INTOOBSV 15:45 → ED 22:02
DX: T43.592A Poisoning by other antipsychotics and neuroleptics, intentional self-harm, initial encounter (principal); T48.1X2A Poisoning by skeletal muscle relaxants [neuromuscular blocking agents], intentional self-harm, initial encounter; F32.9 Major depressive disorder, single episode, unspecified; F10.10 Alcohol abuse, uncomplicated; I10 Essential (primary) hypertension; I73.9 Peripheral vascular disease, unspecified; Y92.89 Other specified places as the place of occurrence of the external cause; K21.9 Gastro-esophageal reflux disease without esophagitis; J44.9 Chronic obstructive pulmonary disease, unspecified; K74.60 Unspecified cirrhosis of liver; Z88.0 Allergy status to penicillin; Z59.0 Homelessness
CPT/HCPCS: 36415; 70450; 72125; 80053; 80307; 80329; 81003; 82565; 85025; 93005; 96361; 96365; 96366; 96372; 99285; J1200; J2060; J3411; J3475; J3486; J7030; 96374; G0480

== ENCOUNTER 2018-03-15 22:04 | Inpatient (IN) | payer MEDICAID ==
[~2018-03-15] VITALS: Ht 175.3 cm; Wt 71.8 kg
[2018-03-15 22:41] VITALS: BP 132/81
[2018-03-15 22:43] VITALS: BP_SYST 112; BP_SYST 138; BP_DIAS 76; BP_DIAS 84
[2018-03-16] MEDS: ACETAMINOPHEN 325 MG TABLET PO PRN ×3 (02:15→16:49)
[2018-03-16] MEDS ORDERED: CETIRIZINE 10 MG TABLET PO PRN (02:30)
[2018-03-16] MEDS ORDERED: DOCUSATE 100 MG CAPSULE PO PRN (02:30)
[2018-03-16] MEDS ORDERED: DIPHENHYDRAMINE 50 MG CAPSULE PO PRN (02:30)
[2018-03-16] MEDS ORDERED: POLYETHYLENE GLYCOL 17 GM PACKET PO PRN (02:30)
[2018-03-16] MEDS ORDERED: BISACODYL 10 MG SUPP PR PRN (02:30)
[2018-03-16] MEDS: NICOTINE 7 MG/24 HR PATCH.TD24 TD SCH (02:46)
[2018-03-16 04:55] LABS: TRIGLYCERIDES 54 mg/dL (50-200); VLDL CHOLESTEROL 11 mg/dL (0-25)
[2018-03-16 05:21] LABS: CHOL/HDL RATIO 1.8; CHOLESTEROL, TOTAL 161 mg/dL (140-239); FREE T4 (FREE THYROXINE) 0.89 ng/dL (0.76-1.46); HDL CHOL % 56 % (26-37); HDL CHOLESTEROL (DIRECT) 90 mg/dL (40-60); LDL CHOLESTEROL,CALCULATED 60 mg/dL (54-169); LDL/HDL RATIO 0.7 (0.5-3.0); THYROID STIMULATING HORMONE 0.619 mIU/L (0.358-3.740)
[2018-03-16 05:25] LABS: FOLATE LEVEL > 20.0 ng/mL (3.1-17.5)
[2018-03-16] MEDS ORDERED: ONDANSETRON ODT 4 MG PO PRN (05:30)
[2018-03-16] MEDS ORDERED: ZIPRASIDONE 20 MG INJ IM PRN ×2 (06:30)
[2018-03-16 07:34] VITALS: BP 167/98
[2018-03-16] MEDS: FOLIC ACID 1 MG TABLET PO SCH (09:00)
[2018-03-16] MEDS: GUAIFENESIN ER 600 MG TABLET PO SCH ×2 (09:00→21:26)
[2018-03-16] MEDS: ASPIRIN 81 MG TABLET EC PO SCH (09:11)
[2018-03-16] MEDS: MULTIVITAMINS/MINERALS TABLET PO SCH (09:12)
[2018-03-16] MEDS: AMLODIPINE 5 MG TABLET PO SCH (09:13)
[2018-03-16] MEDS: LISINOPRIL 10 MG TABLET PO SCH (09:13)
[2018-03-16] MEDS: THIAMINE 100MG TABLET PO SCH (09:14)
[2018-03-16] MEDS ORDERED: AMLODIPINE 5 MG TABLET PO SCH (13:00)
[2018-03-16] MEDS ORDERED: MULTIVITAMINS/MINERALS TABLET PO SCH (13:00)
[2018-03-16] MEDS ORDERED: THIAMINE 100MG TABLET PO SCH (13:00)
[2018-03-16] MEDS ORDERED: FOLIC ACID 1 MG TABLET PO SCH (13:00)
[2018-03-16] MEDS ORDERED: ZOLPIDEM 10MG TABLET PO PRN (17:30)
[2018-03-16] MEDS: DULOXETINE 30 MG CAPSULE.DR PO SCH (17:50)
[2018-03-16 20:00] VITALS: BP 132/79
[2018-03-16] MEDS: ATORVASTATIN 40 MG TABLET PO SCH (21:05)
[2018-03-16] MEDS ORDERED: ZOLPIDEM 5MG TABLET ONE (21:11)
[2018-03-17 07:22] VITALS: BP 145/89
[2018-03-17] MEDS: ACETAMINOPHEN 325 MG TABLET PO PRN ×2 (07:45→17:45)
[2018-03-17] MEDS: NICOTINE 7 MG/24 HR PATCH.TD24 TD SCH (07:47)
[2018-03-17] MEDS: ASPIRIN 81 MG TABLET EC PO SCH (08:55)
[2018-03-17] MEDS: DULOXETINE 30 MG CAPSULE.DR PO SCH ×2 (08:55→20:28)
[2018-03-17] MEDS: MULTIVITAMINS/MINERALS TABLET PO SCH (08:56)
[2018-03-17] MEDS: GUAIFENESIN ER 600 MG TABLET PO SCH ×2 (08:56→20:28)
[2018-03-17] MEDS: FOLIC ACID 1 MG TABLET PO SCH (08:56)
[2018-03-17] MEDS: LISINOPRIL 10 MG TABLET PO SCH (08:57)
[2018-03-17] MEDS: AMLODIPINE 5 MG TABLET PO SCH (08:57)
[2018-03-17] MEDS: THIAMINE 100MG TABLET PO SCH (08:58)
[2018-03-17] MEDS ORDERED: FAMOTIDINE 20 MG TABLET ONE (17:37)
[2018-03-17] MEDS: FAMOTIDINE 20 MG TABLET PO SCH (17:40)
[2018-03-17 19:50] VITALS: BP 143/88
[2018-03-17] MEDS: ATORVASTATIN 40 MG TABLET PO SCH (20:27)
[2018-03-17] MEDS ORDERED: QUETIAPINE 100MG TABLET PO SCH (21:00)
[2018-03-18 07:18] VITALS: BP 133/80
[2018-03-18] MEDS: NICOTINE 7 MG/24 HR PATCH.TD24 TD SCH (08:00)
[2018-03-18] MEDS: DULOXETINE 30 MG CAPSULE.DR PO SCH ×2 (09:26→20:51)
[2018-03-18] MEDS: AMLODIPINE 5 MG TABLET PO SCH (09:27)
[2018-03-18] MEDS: GUAIFENESIN ER 600 MG TABLET PO SCH ×2 (09:27→20:51)
[2018-03-18] MEDS: FAMOTIDINE 20 MG TABLET PO SCH ×2 (09:27→20:52)
[2018-03-18] MEDS: MULTIVITAMINS/MINERALS TABLET PO SCH (09:27)
[2018-03-18] MEDS: ASPIRIN 81 MG TABLET EC PO SCH (09:27)
[2018-03-18] MEDS: LISINOPRIL 10 MG TABLET PO SCH (09:27)
[2018-03-18] MEDS: FOLIC ACID 1 MG TABLET PO SCH (09:27)
[2018-03-18] MEDS: THIAMINE 100MG TABLET PO SCH (09:27)
[2018-03-18 19:59] VITALS: BP 129/82
[2018-03-18] MEDS: ATORVASTATIN 40 MG TABLET PO SCH (20:52)
[2018-03-18] MEDS: QUETIAPINE 100MG TABLET PO SCH (20:52)
[2018-03-19 07:58] VITALS: BP 132/84
[2018-03-19] MEDS: NICOTINE 7 MG/24 HR PATCH.TD24 TD SCH (09:08)
[2018-03-19] MEDS: THIAMINE 100MG TABLET PO SCH (09:08)
[2018-03-19] MEDS: ASPIRIN 81 MG TABLET EC PO SCH (09:08)
[2018-03-19] MEDS: DULOXETINE 30 MG CAPSULE.DR PO SCH ×2 (09:08→19:57)
[2018-03-19] MEDS: FAMOTIDINE 20 MG TABLET PO SCH ×2 (09:08→19:57)
[2018-03-19] MEDS: MULTIVITAMINS/MINERALS TABLET PO SCH (09:08)
[2018-03-19] MEDS: FOLIC ACID 1 MG TABLET PO SCH (09:09)
[2018-03-19] MEDS: GUAIFENESIN ER 600 MG TABLET PO SCH ×2 (09:09→19:57)
[2018-03-19] MEDS: AMLODIPINE 5 MG TABLET PO SCH (09:09)
[2018-03-19] MEDS: LISINOPRIL 10 MG TABLET PO SCH (09:09)
[2018-03-19] MEDS: ACETAMINOPHEN 325 MG TABLET PO PRN (10:16)
[2018-03-19 19:33] VITALS: BP 118/61
[2018-03-19] MEDS: GABAPENTIN 100 MG CAPSULE PO SCH (19:57)
[2018-03-19] MEDS: QUETIAPINE 100MG TABLET PO SCH (19:57)
[2018-03-19] MEDS: ATORVASTATIN 40 MG TABLET PO SCH (19:58)
[2018-03-20] MEDS: NICOTINE 7 MG/24 HR PATCH.TD24 TD SCH (07:32)
[2018-03-20 08:55] VITALS: BP 114/77
[2018-03-20] MEDS: FAMOTIDINE 20 MG TABLET PO SCH ×2 (09:00→21:03)
[2018-03-20] MEDS: GUAIFENESIN ER 600 MG TABLET PO SCH ×2 (09:01→21:03)
[2018-03-20] MEDS: DULOXETINE 30 MG CAPSULE.DR PO SCH ×2 (09:01→21:03)
[2018-03-20] MEDS: THIAMINE 100MG TABLET PO SCH (09:01)
[2018-03-20] MEDS: FOLIC ACID 1 MG TABLET PO SCH (09:01)
[2018-03-20] MEDS: LORazepam 1MG TABLET PO PRN ×2 (09:01→12:57)
[2018-03-20] MEDS: LISINOPRIL 10 MG TABLET PO SCH (09:01)
[2018-03-20] MEDS: MULTIVITAMINS/MINERALS TABLET PO SCH (09:01)
[2018-03-20] MEDS: ASPIRIN 81 MG TABLET EC PO SCH (09:01)
[2018-03-20] MEDS: AMLODIPINE 5 MG TABLET PO SCH (09:02)
[2018-03-20 19:50] VITALS: BP 117/74
[2018-03-20] MEDS: GABAPENTIN 100 MG CAPSULE PO SCH (21:02)
[2018-03-20] MEDS: QUETIAPINE 100MG TABLET PO SCH (21:02)
[2018-03-20] MEDS: ATORVASTATIN 40 MG TABLET PO SCH (21:02)
[2018-03-21] MEDS: LORazepam 1MG TABLET PO PRN ×5 (03:02→20:15)
[2018-03-21] MEDS: ASPIRIN 81 MG TABLET EC PO SCH (08:32)
[2018-03-21] MEDS: THIAMINE 100MG TABLET PO SCH (08:32)
[2018-03-21] MEDS: FOLIC ACID 1 MG TABLET PO SCH (08:32)
[2018-03-21] MEDS: DULOXETINE 30 MG CAPSULE.DR PO SCH ×2 (08:32→20:13)
[2018-03-21] MEDS: GUAIFENESIN ER 600 MG TABLET PO SCH ×2 (08:32→20:13)
[2018-03-21] MEDS: MULTIVITAMINS/MINERALS TABLET PO SCH (08:32)
[2018-03-21] MEDS: FAMOTIDINE 20 MG TABLET PO SCH ×2 (08:32→20:13)
[2018-03-21 08:33] VITALS: BP 111/74
[2018-03-21] MEDS: NICOTINE 7 MG/24 HR PATCH.TD24 TD SCH (08:33)
[2018-03-21] MEDS: LISINOPRIL 10 MG TABLET PO SCH (08:34)
[2018-03-21 09:48] VITALS: BP 119/74
[2018-03-21] MEDS: AMLODIPINE 5 MG TABLET PO SCH (09:49)
[2018-03-21 19:37] VITALS: BP 114/69
[2018-03-21] MEDS: GABAPENTIN 100 MG CAPSULE PO SCH (20:13)
[2018-03-21] MEDS: QUETIAPINE 100MG TABLET PO SCH (20:13)
[2018-03-21] MEDS: ATORVASTATIN 40 MG TABLET PO SCH (20:13)
[2018-03-22] MEDS: LORazepam 1MG TABLET PO PRN ×5 (03:54→20:31)
[2018-03-22] MEDS: MULTIVITAMINS/MINERALS TABLET PO SCH (08:07)
[2018-03-22] MEDS: DULOXETINE 30 MG CAPSULE.DR PO SCH ×2 (08:07→20:31)
[2018-03-22] MEDS: FAMOTIDINE 20 MG TABLET PO SCH ×2 (08:07→20:31)
[2018-03-22] MEDS: GUAIFENESIN ER 600 MG TABLET PO SCH ×2 (08:08→20:31)
[2018-03-22] MEDS: THIAMINE 100MG TABLET PO SCH (08:08)
[2018-03-22] MEDS: FOLIC ACID 1 MG TABLET PO SCH (08:08)
[2018-03-22] MEDS: ASPIRIN 81 MG TABLET EC PO SCH (08:08)
[2018-03-22] MEDS: NICOTINE 7 MG/24 HR PATCH.TD24 TD SCH (08:09)
[2018-03-22] MEDS: LISINOPRIL 10 MG TABLET PO SCH (08:09)
[2018-03-22] MEDS: AMLODIPINE 5 MG TABLET PO SCH (08:09)
[2018-03-22 08:22] VITALS: BP 116/77
[2018-03-22] MEDS: ACETAMINOPHEN 325 MG TABLET PO PRN (12:59)
[2018-03-22 19:50] VITALS: BP 134/86
[2018-03-22] MEDS: QUETIAPINE 100MG TABLET PO SCH (20:31)
[2018-03-22] MEDS: GABAPENTIN 100 MG CAPSULE PO SCH (20:31)
[2018-03-22] MEDS: ATORVASTATIN 40 MG TABLET PO SCH (20:34)
[2018-03-23] MEDS: LORazepam 1MG TABLET PO PRN ×4 (05:52→18:40)
[2018-03-23 07:45] VITALS: BP 124/79
[2018-03-23] MEDS: AMLODIPINE 5 MG TABLET PO SCH (09:04)
[2018-03-23] MEDS: MULTIVITAMINS/MINERALS TABLET PO SCH (09:04)
[2018-03-23] MEDS: FAMOTIDINE 20 MG TABLET PO SCH ×2 (09:05→20:29)
[2018-03-23] MEDS: ASPIRIN 81 MG TABLET EC PO SCH (09:05)
[2018-03-23] MEDS: FOLIC ACID 1 MG TABLET PO SCH (09:05)
[2018-03-23] MEDS: LISINOPRIL 10 MG TABLET PO SCH (09:05)
[2018-03-23] MEDS: THIAMINE 100MG TABLET PO SCH (09:05)
[2018-03-23] MEDS: GUAIFENESIN ER 600 MG TABLET PO SCH ×2 (09:05→20:29)
[2018-03-23] MEDS: DULOXETINE 30 MG CAPSULE.DR PO SCH ×2 (09:06→20:29)
[2018-03-23] MEDS: NICOTINE 7 MG/24 HR PATCH.TD24 TD SCH (09:07)
[2018-03-23] MEDS: ACETAMINOPHEN 325 MG TABLET PO PRN (14:17)
[2018-03-23 19:54] VITALS: BP 136/88
[2018-03-23] MEDS: ATORVASTATIN 40 MG TABLET PO SCH (20:28)
[2018-03-23] MEDS: GABAPENTIN 100 MG CAPSULE PO SCH (20:28)
[2018-03-23] MEDS: QUETIAPINE 100MG TABLET PO SCH (20:29)
[2018-03-24] MEDS: LORazepam 1MG TABLET PO PRN ×5 (04:22→18:06)
[2018-03-24 07:49] VITALS: BP 116/79
[2018-03-24] MEDS: FAMOTIDINE 20 MG TABLET PO SCH ×2 (09:14→21:04)
[2018-03-24] MEDS: AMLODIPINE 5 MG TABLET PO SCH (09:14)
[2018-03-24] MEDS: FOLIC ACID 1 MG TABLET PO SCH (09:14)
[2018-03-24] MEDS: ASPIRIN 81 MG TABLET EC PO SCH (09:14)
[2018-03-24] MEDS: DULOXETINE 30 MG CAPSULE.DR PO SCH ×2 (09:14→21:04)
[2018-03-24] MEDS: THIAMINE 100MG TABLET PO SCH (09:14)
[2018-03-24] MEDS: GUAIFENESIN ER 600 MG TABLET PO SCH ×2 (09:14→21:03)
[2018-03-24] MEDS: MULTIVITAMINS/MINERALS TABLET PO SCH (09:15)
[2018-03-24] MEDS: LISINOPRIL 10 MG TABLET PO SCH (09:15)
[2018-03-24] MEDS: NICOTINE 7 MG/24 HR PATCH.TD24 TD SCH (09:17)
[2018-03-24 19:45] VITALS: BP 107/70
[2018-03-24] MEDS: GABAPENTIN 100 MG CAPSULE PO SCH (21:03)
[2018-03-24] MEDS: ATORVASTATIN 40 MG TABLET PO SCH (21:04)
[2018-03-24] MEDS: QUETIAPINE 100MG TABLET PO SCH (21:04)
[2018-03-25] MEDS: LORazepam 1MG TABLET PO PRN ×5 (04:53→18:29)
[2018-03-25 07:45] VITALS: BP 158/88
[2018-03-25] MEDS: MULTIVITAMINS/MINERALS TABLET PO SCH (08:47)
[2018-03-25] MEDS: AMLODIPINE 5 MG TABLET PO SCH (08:47)
[2018-03-25] MEDS: NICOTINE 7 MG/24 HR PATCH.TD24 TD SCH (08:47)
[2018-03-25] MEDS: ASPIRIN 81 MG TABLET EC PO SCH (08:47)
[2018-03-25] MEDS: GUAIFENESIN ER 600 MG TABLET PO SCH ×2 (08:48→20:33)
[2018-03-25] MEDS: LISINOPRIL 10 MG TABLET PO SCH (08:49)
[2018-03-25] MEDS: FOLIC ACID 1 MG TABLET PO SCH (08:49)
[2018-03-25] MEDS: DULOXETINE 30 MG CAPSULE.DR PO SCH ×2 (08:49→20:33)
[2018-03-25] MEDS: FAMOTIDINE 20 MG TABLET PO SCH ×2 (08:50→20:33)
[2018-03-25] MEDS: THIAMINE 100MG TABLET PO SCH (08:50)
[2018-03-25] MEDS: ACETAMINOPHEN 325 MG TABLET PO PRN (18:29)
[2018-03-25] MEDS: GABAPENTIN 100 MG CAPSULE PO SCH (20:33)
[2018-03-25] MEDS: QUETIAPINE 100MG TABLET PO SCH (20:33)
[2018-03-25] MEDS: ATORVASTATIN 40 MG TABLET PO SCH (20:33)
[2018-03-25 20:45] VITALS: BP 117/75
[2018-03-26] MEDS: LORazepam 1MG TABLET PO PRN ×2 (02:32→05:16)
[2018-03-26 07:34] VITALS: BP 132/84
[2018-03-26] MEDS: GUAIFENESIN ER 600 MG TABLET PO SCH (08:26)
[2018-03-26] MEDS: NICOTINE 7 MG/24 HR PATCH.TD24 TD SCH (08:26)
[2018-03-26] MEDS: FAMOTIDINE 20 MG TABLET PO SCH (08:26)
[2018-03-26] MEDS: LISINOPRIL 10 MG TABLET PO SCH (08:26)
[2018-03-26] MEDS: THIAMINE 100MG TABLET PO SCH (08:26)
[2018-03-26] MEDS: AMLODIPINE 5 MG TABLET PO SCH (08:26)
[2018-03-26] MEDS: ASPIRIN 81 MG TABLET EC PO SCH (08:27)
[2018-03-26] MEDS: FOLIC ACID 1 MG TABLET PO SCH (08:28)
[2018-03-26] MEDS: DULOXETINE 30 MG CAPSULE.DR PO SCH (08:28)
[2018-03-26] MEDS: MULTIVITAMINS/MINERALS TABLET PO SCH (08:29)
[2018-03-26] MEDS: ACETAMINOPHEN 325 MG TABLET PO PRN (15:41)
[2018-03-26] MEDS ORDERED: LISI-167 PO (16:06)
[2018-03-26] MEDS ORDERED: CETI10TA18 PO (16:06)
[2018-03-26] MEDS ORDERED: FAMO20TA7 PO (16:06)
[2018-03-26] MEDS ORDERED: ATOR40TA78 PO (16:06)
[2018-03-26] MEDS ORDERED: GABA-826 PO (16:06)
[2018-03-26] MEDS ORDERED: AMLO5TAB2 PO (16:06)
[2018-03-26] MEDS ORDERED: DOCU-131 PO (16:06)
[2018-03-26] MEDS ORDERED: NICO-485 TD (16:06)
[2018-03-26] MEDS ORDERED: ASPI-621 PO (16:06)
[2018-03-26] MEDS ORDERED: QUET100T PO ×2 (16:06→16:11)
[2018-03-26] MEDS ORDERED: MULT-484 PO (16:06)
[2018-03-26] MEDS ORDERED: DULO30CA2 PO (16:06)
== END 2018-03-26 16:36 | disposition home or self-care (01) | DRG 885 ==
LOC: 3E 22:04 → UNDOADMIN 22:04 → 3E 03-18 13:50
PROVIDERS: ADMIT Psychiatry & Neurology Psychosomatic Medicine; ATTEND Psychiatry & Neurology Psychosomatic Medicine
DX: F33.2 Major depressive disorder, recurrent severe without psychotic features (principal); I10 Essential (primary) hypertension; B19.20 Unspecified viral hepatitis C without hepatic coma; E78.5 Hyperlipidemia, unspecified; K21.9 Gastro-esophageal reflux disease without esophagitis; J44.9 Chronic obstructive pulmonary disease, unspecified; G47.00 Insomnia, unspecified; F10.20 Alcohol dependence, uncomplicated; F17.210 Nicotine dependence, cigarettes, uncomplicated; K59.00 Constipation, unspecified; K74.60 Unspecified cirrhosis of liver; Z79.82 Long term (current) use of aspirin; Z79.899 Other long term (current) drug therapy; Z82.5 Family history of asthma and other chronic lower respiratory diseases; Z84.89 Family history of other specified conditions; Z88.1 Allergy status to other antibiotic agents
CPT/HCPCS: 36415; 80061; 82140; 82607; 82746; 84439; 84443; 86592; 92523-GN

== ENCOUNTER 2018-05-11 13:05 | Emergency (ER) | payer MEDICAID ==
[~2018-05-11] VITALS: Ht 175.3 cm; Wt 72.0 kg
[~2018-05-11 13:05] MED LIST changes: -AMLO5TAB2 PO; +AMLO5TAB7 PO; +ASPI-621 PO; +DOCU-131 PO; +DULO30CA2 PO; +FAMO20TA7 PO; +GABA-826 PO; +NICO-485 TD; +QUET100T PO
[2018-05-11] MEDS ORDERED: SODIUM CHLORIDE 0.9% 1,000ML IVBOLUS ONE (13:30)
[2018-05-11] MEDS ORDERED: SODIUM CHLORIDE FLUSH 10ML SYR IVF ONE (13:30)
[2018-05-11 13:49] LABS: BASOPHILS # (AUTO) 0.05 x10^3/uL (0-0.1); BASOPHILS % (AUTO) 1 % (0-1); EOSINOPHILS % (AUTO) 1 % (1-7); LYMPHOCYTES # (AUTO) 2.56 x10^3/uL (1-3.4); LYMPHOCYTES % (AUTO) 32 % (22-44); MD NO; MEAN CORPUSCULAR HEMOGLOBIN 31.1 pg (27.5-34.5); MEAN CORPUSCULAR HGB CONC 33.9 g/dL (33.2-36.2); MEAN PLATELET VOLUME 7.1 fL (7.4-10.4); MONOCYTES # (AUTO) 0.44 x10^3/uL (0.2-0.8); MONOCYTES % (AUTO) 6 % (2-9); NEUTROPHILS # (AUTO) 4.79 x10^3/uL (1.8-6.8); NEUTROPHILS % (AUTO) 60 % (42-75); PLATELET COUNT 253 x10^3/uL (130-400); RED BLOOD COUNT 4.13 x10^6/uL (4.38-5.82); RED CELL DISTRIBUTION WIDTH 14.9 % (9.4-14.8)
[2018-05-11 14:03] LABS: ALANINE AMINOTRANSFERASE 34 U/L (12-78); ALBUMIN 3.9 g/dL (3.4-5.0); ANION GAP 16 mmol/L (5-15); CALCIUM 8.8 mg/dL (8.5-10.1); CHLORIDE 102 mmol/L (98-107); CREATININE 1.53 mg/dL (0.7-1.3)
[2018-05-11 14:05] LABS: INTERNATIONAL NORMALIZED RATIO 0.9 (0.93-1.1); PROTHROMBIN TIME 9.4 Seconds (9.6-11.5)
[2018-05-11 14:08] LABS: ALKALINE PHOSPHATASE 109 U/L (45-117); BILIRUBIN,TOTAL 0.6 mg/dL (0.2-1.0); TOTAL PROTEIN 7.6 g/dL (6.4-8.2); TROPONIN I < 0.015 ng/mL (0.000-0.045)
[2018-05-11] MEDS ORDERED: LORazepam 2 MG/ML, 1ML IVPush STA (14:46)
[2018-05-11] MEDS ORDERED: LORazepam 2 MG/ML, 1ML ONE (14:54)
[2018-05-11] MEDS ORDERED: ACETAMINOPHEN 325 MG TABLET ONE ×2 (14:54→15:01)
[2018-05-11] MEDS ORDERED: ACETAMINOPHEN 325 MG TABLET PO ONE (15:00)
[2018-05-11] MEDS ORDERED: ACETAMINOPHEN 500 MG TABLET ONE (15:05)
[2018-05-11 15:55] VITALS: BP 178/88
== END 2018-05-11 15:57 | disposition home or self-care (01) ==
LOC: ED 15:50
DX: R53.1 Weakness (principal); J20.9 Acute bronchitis, unspecified; F10.239 Alcohol dependence with withdrawal, unspecified; R45.4 Irritability and anger; J44.9 Chronic obstructive pulmonary disease, unspecified; K21.9 Gastro-esophageal reflux disease without esophagitis; I10 Essential (primary) hypertension; N28.9 Disorder of kidney and ureter, unspecified; Z88.0 Allergy status to penicillin; R07.9 Chest pain, unspecified
CPT/HCPCS: 36415; 71045; 80053; 84484; 85025; 85610; 85730; 93005; 96361; 96374; 99285; J2060; J7030

== ENCOUNTER 2018-09-14 16:00 | Inpatient (IN) | payer MEDICAID ==
[~2018-09-14] VITALS: Ht 175.3 cm; Wt 69.2 kg
[~2018-09-14 16:00] MED LIST changes: +AMLO-150 PO; -AMLO5TAB7 PO; -ASPI-621 PO; +ASPI81TA45 PO
[2018-09-14] MEDS ORDERED: MAALOX/HYOSCYAMINE/LIDOCAINE 45 ML BTL PO ONE (16:30)
[2018-09-14] MEDS ORDERED: FAMOTIDINE 20 MG TABLET PO ONE (16:30)
[2018-09-14 16:36] LABS: BASOPHILS % (AUTO) 1 % (0-1); EOSINOPHILS # (AUTO) 0.04 x10^3/uL (0-0.4); EOSINOPHILS % (AUTO) 0 % (1-7); LYMPHOCYTES # (AUTO) 2.81 x10^3/uL (1-3.4); LYMPHOCYTES % (AUTO) 18 % (22-44); MD NO; MEAN CORPUSCULAR HEMOGLOBIN 30.9 pg (27.5-34.5); MEAN CORPUSCULAR HGB CONC 33.7 g/dL (33.2-36.2); MEAN CORPUSCULAR VOLUME 91.7 fL (81-97); MEAN PLATELET VOLUME 7.3 fL (7.4-10.4); MONOCYTES # (AUTO) 1.27 x10^3/uL (0.2-0.8); MONOCYTES % (AUTO) 8 % (2-9); NEUTROPHILS # (AUTO) 11.75 x10^3/uL (1.8-6.8); NEUTROPHILS % (AUTO) 74 % (42-75); PLATELET COUNT 381 x10^3/uL (130-400); RED BLOOD COUNT 4.62 x10^6/uL (4.38-5.82); RED CELL DISTRIBUTION WIDTH 17.4 % (9.4-14.8)
[2018-09-14 16:46] LABS: PROTHROMBIN TIME 10.6 Seconds (9.6-11.5)
[2018-09-14 16:48] LABS: ALANINE AMINOTRANSFERASE 15 U/L (12-78); ALBUMIN 3.3 g/dL (3.4-5.0); ANION GAP 11 mmol/L (5-15); CALCIUM 8.5 mg/dL (8.5-10.1); CHLORIDE 111 mmol/L (98-107); CREATININE 1.16 mg/dL (0.7-1.3)
[2018-09-14 16:50] LABS: ALKALINE PHOSPHATASE 84 U/L (45-117); BILIRUBIN,TOTAL 0.2 mg/dL (0.2-1.0); TOTAL PROTEIN 6.8 g/dL (6.4-8.2)
[2018-09-14] MEDS ORDERED: CEFTRIAXONE PMX 1GM/50ML 50 ML ONE (16:58)
[2018-09-14] MEDS ORDERED: DOXYCYCLINE 100 MG in DEXTROSE 5% 250 ML IV ONE (17:00)
[2018-09-14] MEDS ORDERED: SODIUM CHLORIDE FLUSH 10ML SYR IVF ONE (17:00)
[2018-09-14] MEDS ORDERED: SODIUM CHLORIDE 0.9% 1,000ML IVBOLUS ONE (17:00)
[2018-09-14] MEDS ORDERED: CEFTRIAXONE 1,000 MG in SODIUM CHLORIDE 0.9% 50 ML IVPB ONE (17:00)
[2018-09-14] MEDS: SODIUM CHLORIDE 0.9% 1,000 ML IV SCH (17:59)
[2018-09-14] MEDS ORDERED: POLYETHYLENE GLYCOL 17 GM PACKET PO PRN (18:00)
[2018-09-14] MEDS ORDERED: ONDANSETRON ODT 4 MG PO PRN (18:00)
[2018-09-14] MEDS ORDERED: MAGNESIUM SULFATE 1 GM, THIAMINE 100 MG, FOLIC ACID 1 MG, MVI ADULT 10 ML in SODIUM CHL... IV ONE (18:00)
[2018-09-14] MEDS ORDERED: GUAIFENESIN/DM 200-20MG, 10ML UDC PO PRN (18:00)
[2018-09-14] MEDS: NICOTINE 14MG/24 HR PATCH.TD24 TD SCH (18:00)
[2018-09-14] MEDS ORDERED: BISACODYL 10 MG SUPP PR PRN (18:00)
[2018-09-14] MEDS ORDERED: ACETAMINOPHEN 325 MG TABLET ONE (18:22)
[2018-09-14] MEDS ORDERED: HEPARIN 5,000 UNITS/ML, 1ML ONE (18:23)
[2018-09-14] MEDS: HEPARIN 5,000 UNITS/ML, 1ML SQ SCH (18:26)
[2018-09-14] MEDS: ACETAMINOPHEN 325 MG TABLET PO PRN (18:26)
[2018-09-14 19:30] VITALS: BP 138/63
[2018-09-14] MEDS ORDERED: LORazepam 0.5MG TABLET PO PRN (20:00)
[2018-09-14] MEDS ORDERED: LORazepam 2 MG/ML, 1ML IV PRN ×3 (20:00)
[2018-09-14] MEDS ORDERED: LORazepam 1MG TABLET PO PRN ×4 (20:00)
[2018-09-14] MEDS: MAGNESIUM OXIDE 400 MG TABLET PO SCH (20:39)
[2018-09-14] MEDS: ATORVASTATIN 40 MG TABLET PO SCH (20:39)
[2018-09-14] MEDS: DULOXETINE 30 MG CAPSULE.DR PO SCH (20:39)
[2018-09-14] MEDS: GUAIFENESIN ER 600 MG TABLET PO SCH (20:39)
[2018-09-14] MEDS: FAMOTIDINE 20 MG TABLET PO SCH (20:39)
[2018-09-14] MEDS: QUETIAPINE 100MG TABLET PO SCH (20:39)
[2018-09-14] MEDS: GABAPENTIN 100 MG CAPSULE PO SCH (20:40)
[2018-09-15] VITALS (9 sets, daily range): BP systolic 106–185; BP diastolic 62–98
[2018-09-15] MEDS: HEPARIN 5,000 UNITS/ML, 1ML SQ SCH ×3 (02:14→18:23)
[2018-09-15] MEDS: LORazepam 2 MG/ML, 1ML IV PRN ×6 (02:20→22:15)
[2018-09-15] MEDS: SODIUM CHLORIDE 0.9% 1,000 ML IV SCH (02:47)
[2018-09-15] MEDS ORDERED: ALBUTEROL SULFATE 2.5 MG/3 ML NPPB PRN (03:00)
[2018-09-15 05:29] LABS: BASOPHILS # (AUTO) 0.04 x10^3/uL (0-0.1); BASOPHILS % (AUTO) 0 % (0-1); EOSINOPHILS # (AUTO) 0.03 x10^3/uL (0-0.4); EOSINOPHILS % (AUTO) 0 % (1-7); LYMPHOCYTES # (AUTO) 2.44 x10^3/uL (1-3.4); LYMPHOCYTES % (AUTO) 21 % (22-44); MD NO; MEAN CORPUSCULAR HEMOGLOBIN 30.8 pg (27.5-34.5); MEAN CORPUSCULAR HGB CONC 33.7 g/dL (33.2-36.2); MEAN CORPUSCULAR VOLUME 91.6 fL (81-97); MEAN PLATELET VOLUME 7.7 fL (7.4-10.4); MONOCYTES # (AUTO) 0.82 x10^3/uL (0.2-0.8); MONOCYTES % (AUTO) 7 % (2-9); NEUTROPHILS # (AUTO) 8.12 x10^3/uL (1.8-6.8); NEUTROPHILS % (AUTO) 71 % (42-75); PLATELET COUNT 280 x10^3/uL (130-400); RED BLOOD COUNT 4.04 x10^6/uL (4.38-5.82); RED CELL DISTRIBUTION WIDTH 16.8 % (9.4-14.8)
[2018-09-15 05:32] LABS: ALANINE AMINOTRANSFERASE 11 U/L (12-78); ALBUMIN 2.6 g/dL (3.4-5.0); ANION GAP 11 mmol/L (5-15); CALCIUM 7.8 mg/dL (8.5-10.1); CHLORIDE 116 mmol/L (98-107)
[2018-09-15 05:34] LABS: ALKALINE PHOSPHATASE 74 U/L (45-117); BILIRUBIN,TOTAL 0.4 mg/dL (0.2-1.0); TOTAL PROTEIN 5.7 g/dL (6.4-8.2)
[2018-09-15] MEDS: DOXYCYCLINE 100 MG in DEXTROSE 5% 250 ML IV SCH ×2 (05:54→18:22)
[2018-09-15] MEDS: SENNA/DOCUSATE TABLET PO SCH (09:00)
[2018-09-15] MEDS: MULTIVITAMINS/MINERALS TABLET PO SCH (09:45)
[2018-09-15] MEDS: FOLIC ACID 1 MG TABLET PO SCH (09:45)
[2018-09-15] MEDS: MAGNESIUM OXIDE 400 MG TABLET PO SCH ×2 (09:45→20:26)
[2018-09-15] MEDS: DULOXETINE 30 MG CAPSULE.DR PO SCH ×2 (09:45→20:11)
[2018-09-15] MEDS: GUAIFENESIN ER 600 MG TABLET PO SCH ×2 (09:46→20:24)
[2018-09-15] MEDS: LISINOPRIL 10 MG TABLET PO SCH (09:46)
[2018-09-15] MEDS: AMLODIPINE 5 MG TABLET PO SCH (09:46)
[2018-09-15] MEDS: ASPIRIN 81 MG TABLET EC PO SCH (09:46)
[2018-09-15] MEDS: THIAMINE 100MG TABLET PO SCH (09:46)
[2018-09-15] MEDS: FAMOTIDINE 20 MG TABLET PO SCH ×2 (09:46→20:26)
[2018-09-15] MEDS ORDERED: hydrALAzine 20 MG/ML, 1ML ONE (10:33)
[2018-09-15] MEDS: hydrALAzine 20 MG/ML, 1ML IV PRN ×2 (10:36→18:35)
[2018-09-15] MEDS: CHLORDIAZEPOXIDE 25 MG CAPSULE PO SCH ×2 (14:29→23:55)
[2018-09-15] MEDS: CEFTRIAXONE PMX 1GM/50ML 50 ML IV SCH (17:49)
[2018-09-15] MEDS ORDERED: SODIUM CHLORIDE 0.9% 1,000 ML IV SCH (17:59)
[2018-09-15] MEDS: NICOTINE 14MG/24 HR PATCH.TD24 TD SCH (18:00)
[2018-09-15] MEDS: QUETIAPINE 100MG TABLET PO SCH (20:11)
[2018-09-15] MEDS: GABAPENTIN 100 MG CAPSULE PO SCH (20:12)
[2018-09-15] MEDS: ATORVASTATIN 40 MG TABLET PO SCH (20:26)
[2018-09-16] VITALS (7 sets, daily range): BP systolic 135–164; BP diastolic 74–99
[2018-09-16] MEDS: HEPARIN 5,000 UNITS/ML, 1ML SQ SCH ×3 (02:02→18:12)
[2018-09-16 05:30] LABS: BASOPHILS # (AUTO) 0.03 x10^3/uL (0-0.1); BASOPHILS % (AUTO) 0 % (0-1); EOSINOPHILS % (AUTO) 1 % (1-7); LYMPHOCYTES # (AUTO) 2.56 x10^3/uL (1-3.4); LYMPHOCYTES % (AUTO) 27 % (22-44); MD NO; MEAN CORPUSCULAR HEMOGLOBIN 30.5 pg (27.5-34.5); MEAN CORPUSCULAR HGB CONC 33.1 g/dL (33.2-36.2); MEAN CORPUSCULAR VOLUME 92.1 fL (81-97); MONOCYTES # (AUTO) 0.59 x10^3/uL (0.2-0.8); MONOCYTES % (AUTO) 6 % (2-9); NEUTROPHILS # (AUTO) 6.14 x10^3/uL (1.8-6.8); NEUTROPHILS % (AUTO) 65 % (42-75); PLATELET COUNT 284 x10^3/uL (130-400); RED BLOOD COUNT 4.22 x10^6/uL (4.38-5.82); RED CELL DISTRIBUTION WIDTH 16.4 % (9.4-14.8)
[2018-09-16 05:44] LABS: ALBUMIN 2.8 g/dL (3.4-5.0); ANION GAP 7 mmol/L (5-15); CHLORIDE 108 mmol/L (98-107)
[2018-09-16 05:48] LABS: ALANINE AMINOTRANSFERASE 9 U/L (12-78); ALKALINE PHOSPHATASE 84 U/L (45-117); BILIRUBIN,TOTAL 0.6 mg/dL (0.2-1.0); CREATININE 0.92 mg/dL (0.7-1.3); TOTAL PROTEIN 6.4 g/dL (6.4-8.2)
[2018-09-16] MEDS: DOXYCYCLINE 100 MG in DEXTROSE 5% 250 ML IV SCH ×2 (05:54→18:42)
[2018-09-16] MEDS: AMLODIPINE 5 MG TABLET PO SCH (08:37)
[2018-09-16] MEDS: ASPIRIN 81 MG TABLET EC PO SCH (08:38)
[2018-09-16] MEDS: LISINOPRIL 10 MG TABLET PO SCH (08:38)
[2018-09-16] MEDS: hydrALAzine 20 MG/ML, 1ML IV PRN (08:38)
[2018-09-16] MEDS: MAGNESIUM OXIDE 400 MG TABLET PO SCH ×2 (08:43→19:27)
[2018-09-16] MEDS: SENNA/DOCUSATE TABLET PO SCH (08:43)
[2018-09-16] MEDS: THIAMINE 100MG TABLET PO SCH (08:43)
[2018-09-16] MEDS: GUAIFENESIN ER 600 MG TABLET PO SCH ×2 (08:44→19:27)
[2018-09-16] MEDS: FOLIC ACID 1 MG TABLET PO SCH (08:44)
[2018-09-16] MEDS: MULTIVITAMINS/MINERALS TABLET PO SCH (08:44)
[2018-09-16] MEDS: DULOXETINE 30 MG CAPSULE.DR PO SCH ×2 (08:44→19:29)
[2018-09-16] MEDS: FAMOTIDINE 20 MG TABLET PO SCH ×2 (08:44→19:29)
[2018-09-16] MEDS: CHLORDIAZEPOXIDE 25 MG CAPSULE PO SCH ×2 (12:32→19:29)
[2018-09-16] MEDS: NICOTINE 14MG/24 HR PATCH.TD24 TD SCH (18:00)
[2018-09-16] MEDS: CEFTRIAXONE PMX 1GM/50ML 50 ML IV SCH (18:10)
[2018-09-16] MEDS: ATORVASTATIN 40 MG TABLET PO SCH (19:27)
[2018-09-16] MEDS: QUETIAPINE 100MG TABLET PO SCH (19:29)
[2018-09-16] MEDS: GABAPENTIN 100 MG CAPSULE PO SCH (19:29)
[2018-09-17 00:36] VITALS: BP 123/83
[2018-09-17] MEDS: HEPARIN 5,000 UNITS/ML, 1ML SQ SCH ×3 (02:12→18:06)
[2018-09-17] MEDS: DOXYCYCLINE 100 MG in DEXTROSE 5% 250 ML IV SCH ×2 (05:27→18:44)
[2018-09-17 07:11] VITALS: BP 155/88
[2018-09-17] MEDS: THIAMINE 100MG TABLET PO SCH (08:59)
[2018-09-17] MEDS: DULOXETINE 30 MG CAPSULE.DR PO SCH ×2 (08:59→19:43)
[2018-09-17] MEDS: GUAIFENESIN ER 600 MG TABLET PO SCH ×3 (08:59→19:42)
[2018-09-17] MEDS: MAGNESIUM OXIDE 400 MG TABLET PO SCH ×2 (08:59→19:42)
[2018-09-17] MEDS: FOLIC ACID 1 MG TABLET PO SCH (08:59)
[2018-09-17] MEDS: MULTIVITAMINS/MINERALS TABLET PO SCH (08:59)
[2018-09-17] MEDS: LISINOPRIL 10 MG TABLET PO SCH (08:59)
[2018-09-17] MEDS: CHLORDIAZEPOXIDE 25 MG CAPSULE PO SCH (08:59)
[2018-09-17] MEDS: FAMOTIDINE 20 MG TABLET PO SCH ×2 (09:00→19:43)
[2018-09-17] MEDS: ASPIRIN 81 MG TABLET EC PO SCH (09:00)
[2018-09-17] MEDS: AMLODIPINE 5 MG TABLET PO SCH (09:00)
[2018-09-17] MEDS: SENNA/DOCUSATE TABLET PO SCH (09:00)
[2018-09-17] MEDS ORDERED: MAGNESIUM SULFATE PMX 2GM/50ML 50 ML IV ONE (09:30)
[2018-09-17 13:11] VITALS: BP 146/87
[2018-09-17] MEDS: ACETAMINOPHEN 325 MG TABLET PO PRN (15:44)
[2018-09-17] MEDS: NICOTINE 14MG/24 HR PATCH.TD24 TD SCH (18:00)
[2018-09-17] MEDS: CARVEDILOL 3.125 MG TABLET PO SCH (18:06)
[2018-09-17] MEDS: CEFTRIAXONE PMX 1GM/50ML 50 ML IV SCH (18:07)
[2018-09-17 18:50] VITALS: BP 138/83
[2018-09-17] MEDS: GABAPENTIN 100 MG CAPSULE PO SCH (19:42)
[2018-09-17] MEDS: ATORVASTATIN 40 MG TABLET PO SCH (19:42)
[2018-09-17] MEDS: QUETIAPINE 100MG TABLET PO SCH (19:43)
[2018-09-18] MEDS: GUAIFENESIN ER 600 MG TABLET PO SCH ×3 (00:30→09:51)
[2018-09-18 01:31] VITALS: BP 130/85
[2018-09-18] MEDS: HEPARIN 5,000 UNITS/ML, 1ML SQ SCH ×2 (01:35→09:49)
[2018-09-18] MEDS: DOXYCYCLINE 100 MG in DEXTROSE 5% 250 ML IV SCH (05:36)
[2018-09-18] MEDS: CARVEDILOL 3.125 MG TABLET PO SCH (05:36)
[2018-09-18 07:33] VITALS: BP 157/97
[2018-09-18 08:31] LABS: BASOPHILS # (AUTO) 0.02 x10^3/uL (0-0.1); BASOPHILS % (AUTO) 0 % (0-1); EOSINOPHILS # (AUTO) 0.17 x10^3/uL (0-0.4); EOSINOPHILS % (AUTO) 2 % (1-7); LYMPHOCYTES # (AUTO) 1.85 x10^3/uL (1-3.4); LYMPHOCYTES % (AUTO) 19 % (22-44); MD NO; MEAN CORPUSCULAR HEMOGLOBIN 30.2 pg (27.5-34.5); MEAN CORPUSCULAR HGB CONC 33.4 g/dL (33.2-36.2); MEAN CORPUSCULAR VOLUME 90.5 fL (81-97); MONOCYTES # (AUTO) 0.55 x10^3/uL (0.2-0.8); MONOCYTES % (AUTO) 6 % (2-9); NEUTROPHILS # (AUTO) 7.31 x10^3/uL (1.8-6.8); NEUTROPHILS % (AUTO) 74 % (42-75); PLATELET COUNT 325 x10^3/uL (130-400); RED BLOOD COUNT 4.79 x10^6/uL (4.38-5.82); RED CELL DISTRIBUTION WIDTH 16.6 % (9.4-14.8)
[2018-09-18 08:42] LABS: ALANINE AMINOTRANSFERASE 11 U/L (12-78); ANION GAP 9 mmol/L (5-15); CHLORIDE 105 mmol/L (98-107); CREATININE 1.03 mg/dL (0.7-1.3)
[2018-09-18 08:45] LABS: ALKALINE PHOSPHATASE 82 U/L (45-117); BILIRUBIN,TOTAL 0.4 mg/dL (0.2-1.0)
[2018-09-18] MEDS: SENNA/DOCUSATE TABLET PO SCH (09:50)
[2018-09-18] MEDS: THIAMINE 100MG TABLET PO SCH (09:50)
[2018-09-18] MEDS: MULTIVITAMINS/MINERALS TABLET PO SCH (09:50)
[2018-09-18] MEDS: ASPIRIN 81 MG TABLET EC PO SCH (09:50)
[2018-09-18] MEDS: FAMOTIDINE 20 MG TABLET PO SCH (09:50)
[2018-09-18] MEDS: LISINOPRIL 10 MG TABLET PO SCH (09:50)
[2018-09-18] MEDS: DULOXETINE 30 MG CAPSULE.DR PO SCH (09:51)
[2018-09-18] MEDS: MAGNESIUM OXIDE 400 MG TABLET PO SCH (09:51)
[2018-09-18] MEDS: FOLIC ACID 1 MG TABLET PO SCH (09:51)
[2018-09-18 13:58] VITALS: BP 141/89
[2018-09-18] MEDS ORDERED: DOXY100T10 PO (14:43)
[2018-09-18] MEDS ORDERED: QUET100T PO (14:43)
[2018-09-18] MEDS ORDERED: GABA-826 PO (14:43)
[2018-09-18] MEDS ORDERED: MULT-484 PO (14:43)
[2018-09-18] MEDS ORDERED: MAGN400T50 PO (14:43)
[2018-09-18] MEDS ORDERED: THIA100T67 PO (14:43)
[2018-09-18] MEDS ORDERED: FOLI-17 PO (14:43)
[2018-09-18] MEDS ORDERED: DULO30CA2 PO (14:43)
[2018-09-18] MEDS ORDERED: ASPI81TA45 PO (14:43)
[2018-09-18] MEDS ORDERED: LISI-170 PO (14:43)
[2018-09-18] MEDS ORDERED: GUAI600T31 PO (14:43)
[2018-09-18] MEDS ORDERED: ALBU18HF INH (14:43)
[2018-09-18] MEDS ORDERED: ATOR40TA78 PO (14:43)
[2018-09-18] MEDS ORDERED: CARV6.252 PO (14:43)
[2018-09-18] MEDS ORDERED: CEFD300C37 PO (14:43)
[2018-09-18] MEDS ORDERED: FAMO20TA7 PO (14:43)
[2018-09-18] MEDS: ACETAMINOPHEN 325 MG TABLET PO PRN (17:49)
== END 2018-09-18 17:55 | disposition home or self-care (01) | DRG 871 ==
LOC: ED 16:49 → EDIP 17:06 → 4NOR 19:00
PROVIDERS: ADMIT Internal Medicine; ATTEND Internal Medicine
DX: A41.9 Sepsis, unspecified organism (principal); J18.1 Lobar pneumonia, unspecified organism; E44.1 Mild protein-calorie malnutrition; F10.239 Alcohol dependence with withdrawal, unspecified; I50.40 Unspecified combined systolic (congestive) and diastolic (congestive) heart failure; J44.0 Chronic obstructive pulmonary disease with (acute) lower respiratory infection; B19.20 Unspecified viral hepatitis C without hepatic coma; Z88.8 Allergy status to other drugs, medicaments and biological substances; Z68.22 Body mass index [BMI] 22.0-22.9, adult; E83.42 Hypomagnesemia; F10.229 Alcohol dependence with intoxication, unspecified; Y90.9 Presence of alcohol in blood, level not specified; F17.210 Nicotine dependence, cigarettes, uncomplicated; I11.0 Hypertensive heart disease with heart failure; K21.9 Gastro-esophageal reflux disease without esophagitis; K70.30 Alcoholic cirrhosis of liver without ascites; Z59.0 Homelessness; Z79.899 Other long term (current) drug therapy
CPT/HCPCS: 36415; 71045; 80053; 80307; 83605; 83690; 83735; 84100; 85025; 85610; 87040; 87070; 87205; 93005; 93306; 96365; 96367; G0378; J0696; J1644; J3411; J3475; J7060; J0360; J2060; J7030

== ENCOUNTER 2018-10-07 11:33 | Emergency (ER) | payer MEDICAID ==
[~2018-10-07] VITALS: Ht 175.3 cm; Wt 70.0 kg
[~2018-10-07 11:33] MED LIST changes: +ALBU18HF INH; +CARV6.252 PO; +DOXY100T10 PO; +LISI-170 PO; +MAGN400T50 PO
[2018-10-07 11:38] VITALS: BP 146/94
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
[2018-10-07] MEDS ORDERED: CEFDINIR 300 MG CAPSULE PO ONE (13:00)
[2018-10-07] MEDS ORDERED: AZITHROMYCIN 500 MG TABLET PO ONE (13:00)
== END 2018-10-07 13:32 | disposition left against medical advice (07) ==
LOC: ED 13:24
DX: S00.83XA Contusion of other part of head, initial encounter (principal); F10.129 Alcohol abuse with intoxication, unspecified; J15.9 Unspecified bacterial pneumonia; J44.9 Chronic obstructive pulmonary disease, unspecified; K21.9 Gastro-esophageal reflux disease without esophagitis; I10 Essential (primary) hypertension; N28.9 Disorder of kidney and ureter, unspecified; W00.0XXA Fall on same level due to ice and snow, initial encounter; Y93.89 Activity, other specified; Y92.410 Unspecified street and highway as the place of occurrence of the external cause; Y99.8 Other external cause status
CPT/HCPCS: 70450; 71046; 72125; 99284

== ENCOUNTER 2018-11-06 15:07 | Emergency (ER) | payer MEDICAID, MEDICARE ==
[~2018-11-06] VITALS: Ht 175.3 cm; Wt 72.0 kg
[2018-11-06 15:17] VITALS: BP 150/86
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
--- NOTE | 2018-11-06 17:03 | NUR ---
pt awake at this time. able to sit up in bed. pt requesting urinal to urniate.
--- NOTE | 2018-11-06 17:09 | NUR ---
PT GIVEN FOOD AT THIS TIME. PT UPON COMPLETION OF MEAL WILL BE DC.
--- NOTE | 2018-11-06 17:33 | NUR ---
Patient/Caregiver given discharge instructions and they have confirmed that they understand the instructions. Patient ambulatory with steady gait.
== END 2018-11-06 17:34 | disposition home or self-care (01) ==
LOC: ED 17:28
DX: F10.129 Alcohol abuse with intoxication, unspecified (principal); I10 Essential (primary) hypertension; K21.9 Gastro-esophageal reflux disease without esophagitis; J44.9 Chronic obstructive pulmonary disease, unspecified; Z72.9 Problem related to lifestyle, unspecified
CPT/HCPCS: 99283

== ENCOUNTER 2018-11-10 16:17 | Emergency (ER) | payer MEDICARE ==
[~2018-11-10] VITALS: Ht 175.3 cm; Wt 79.0 kg
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
[2018-11-10 17:25] LABS: BASOPHILS # (AUTO) 0.06 x10^3/uL (0-0.1); BASOPHILS % (AUTO) 1 % (0-1); EOSINOPHILS # (AUTO) 0.06 x10^3/uL (0-0.4); EOSINOPHILS % (AUTO) 1 % (1-7); LYMPHOCYTES # (AUTO) 3.46 x10^3/uL (1-3.4); LYMPHOCYTES % (AUTO) 32 % (22-44); MD NO; MEAN CORPUSCULAR HEMOGLOBIN 32.3 pg (27.5-34.5); MEAN CORPUSCULAR HGB CONC 33.3 g/dL (33.2-36.2); MEAN PLATELET VOLUME 8.2 fL (7.4-10.4); MONOCYTES # (AUTO) 0.57 x10^3/uL (0.2-0.8); MONOCYTES % (AUTO) 5 % (2-9); NEUTROPHILS # (AUTO) 6.76 x10^3/uL (1.8-6.8); NEUTROPHILS % (AUTO) 62 % (42-75); PLATELET COUNT 194 x10^3/uL (130-400); RED BLOOD COUNT 3.88 x10^6/uL (4.38-5.82); RED CELL DISTRIBUTION WIDTH 18.1 % (9.4-14.8)
[2018-11-10 17:29] LABS: ALBUMIN 3.5 g/dL (3.4-5.0); ANION GAP 13 mmol/L (5-15); CALCIUM 8.3 mg/dL (8.5-10.1); CHLORIDE 98 mmol/L (98-107); CREATININE 0.92 mg/dL (0.7-1.3)
[2018-11-10 17:34] LABS: TROPONIN I < 0.015 ng/mL (0.000-0.045)
[2018-11-10 18:04] VITALS: BP 155/92
== END 2018-11-10 18:07 | disposition home or self-care (01) ==
LOC: ED 16:51
DX: F10.220 Alcohol dependence with intoxication, uncomplicated (principal); R06.00 Dyspnea, unspecified; I10 Essential (primary) hypertension; K21.9 Gastro-esophageal reflux disease without esophagitis; J44.9 Chronic obstructive pulmonary disease, unspecified; Z72.9 Problem related to lifestyle, unspecified; Y90.9 Presence of alcohol in blood, level not specified
CPT/HCPCS: 36415; 71045; 80048; 82040; 83605; 84484; 85025; 93005; 99284

== ENCOUNTER 2018-11-14 08:59 | Emergency (ER) | payer MEDICARE ==
[~2018-11-14] VITALS: Ht 175.3 cm; Wt 72.4 kg
[2018-11-14 09:01] VITALS: BP 129/74
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
[2018-11-14 10:30] LABS: ALBUMIN 3.6 g/dL (3.4-5.0); ANION GAP 14 mmol/L (5-15); CALCIUM 8.3 mg/dL (8.5-10.1); CHLORIDE 94 mmol/L (98-107)
[2018-11-14 10:35] LABS: CREATININE 1.14 mg/dL (0.7-1.3); TROPONIN I < 0.015 ng/mL (0.000-0.045)
--- NOTE | 2018-11-14 10:45 | NUR ---
pt resting in bed at this time. nibp and o2 monitoring in place. resps even and unlabored. no wants or needs at this time.
== END 2018-11-14 12:58 | disposition home or self-care (01) ==
LOC: ED 09:49
DX: F10.20 Alcohol dependence, uncomplicated (principal); Z72.9 Problem related to lifestyle, unspecified; R06.02 Shortness of breath; R42 Dizziness and giddiness; R05 Cough; F32.9 Major depressive disorder, single episode, unspecified; I10 Essential (primary) hypertension; K21.9 Gastro-esophageal reflux disease without esophagitis; J44.9 Chronic obstructive pulmonary disease, unspecified
CPT/HCPCS: 36415; 80048; 80307; 82040; 84484; 93005; 99284

== ENCOUNTER 2018-11-19 17:54 | Emergency (ER) | payer MEDICARE ==
[~2018-11-19] VITALS: Ht 177.8 cm; Wt 86.3 kg
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
--- NOTE | 2018-11-19 18:15 | NUR ---
EKG performed and given to Dr. Sher, report to primary RN Talita.
--- NOTE | 2018-11-19 19:23 | NUR ---
SLEEPING. SAYS HIS NAME WHEN SPOKEN TO. TRUMPET REMAINS IN PLACE. AIRWAY OPEN. CONTINUE TO MONITOR
--- NOTE | 2018-11-19 20:00 | NUR ---
CONTINUES TO SLEEP. PT REMOVED TRUMPET FROM NOSE. OXYGEN VIA N/C IN MOUTH TO MAINTAIN OXYGEN SATURATION. BREATHING EVEN AND UNLABORED
--- NOTE | 2018-11-19 21:02 | NUR ---
REPORT TO ALBARO PALMA
--- NOTE | 2018-11-19 21:03 | NUR ---
RECEIVED REPORT FROM MINERVA MARKS. PATIENT SLEEPING, RESPIRATION UNLABORED. WILL CONTINUE TO MONITOR.
--- NOTE | 2018-11-19 22:21 | NUR ---
ATTEMPTED TO AMBULATE PATIENT, STILL WITH UNSTEADY GAIT.
[2018-11-19 22:29] VITALS: BP 129/81
--- NOTE | 2018-11-20 00:37 | NUR ---
PT REPORT FROM ALBARO PALMA. THIS RN TO ASSUME CARE OF PT. AWAITING STEADY GAIT FOR D/C.
--- NOTE | 2018-11-20 01:58 | NUR ---
PT SLEEPING COMFORTABLY ON GURNEY. RR EVEN AND UNLABORED. NADN.
--- NOTE | 2018-11-20 02:15 | NUR ---
PT FOUND AMB W/ STEADY GAIT TO RR. IV D/C AT THIS TIME. GETTING DRESSED. MD AWARE AND D/C PAPERWORK EN ROUTE.
--- NOTE | 2018-11-20 02:20 | NUR ---
PT REFUSED D/C PAPERWORK.
== END 2018-11-20 02:18 | disposition home or self-care (01) ==
LOC: EDBD → ED 21:07
DX: F10.120 Alcohol abuse with intoxication, uncomplicated (principal); F17.200 Nicotine dependence, unspecified, uncomplicated; J44.9 Chronic obstructive pulmonary disease, unspecified; K21.9 Gastro-esophageal reflux disease without esophagitis; I10 Essential (primary) hypertension
CPT/HCPCS: 93005; 99283

== ENCOUNTER 2018-12-15 20:19 | Emergency (ER) | payer MEDICARE ==
[~2018-12-15] VITALS: Ht 175.3 cm; Wt 68.9 kg
[~2018-12-15 20:19] MED LIST changes: +CARV6.2512 PO; +ERGO500017 PO; +LOSA25TA25 PO; +NYST15CR33 TP
[2018-12-15 20:35] VITALS: BP 123/75
--- NOTE | 2018-12-15 21:46 | NUR ---
FOOD AND FLUIDS GIVEN PT RESTING WAITING FOR RESULTS
[2018-12-15 21:48] LABS: BASOPHILS # (AUTO) 0.12 x10^3/uL (0-0.1); BASOPHILS % (AUTO) 1 % (0-1); EOSINOPHILS % (AUTO) 3 % (1-7); LYMPHOCYTES # (AUTO) 2.76 x10^3/uL (1-3.4); LYMPHOCYTES % (AUTO) 26 % (22-44); MD NO; MEAN CORPUSCULAR HEMOGLOBIN 31.5 pg (27.5-34.5); MEAN CORPUSCULAR HGB CONC 33.1 g/dL (33.2-36.2); MEAN CORPUSCULAR VOLUME 95.3 fL (81-97); MEAN PLATELET VOLUME 7.7 fL (7.4-10.4); MONOCYTES # (AUTO) 0.73 x10^3/uL (0.2-0.8); MONOCYTES % (AUTO) 7 % (2-9); NEUTROPHILS # (AUTO) 6.81 x10^3/uL (1.8-6.8); NEUTROPHILS % (AUTO) 64 % (42-75); PLATELET COUNT 394 x10^3/uL (130-400); RED BLOOD COUNT 3.68 x10^6/uL (4.38-5.82); RED CELL DISTRIBUTION WIDTH 15.1 % (9.4-14.8)
[2018-12-15 22:00] LABS: ALBUMIN 3.3 g/dL (3.4-5.0); ANION GAP 10 mmol/L (5-15); CALCIUM 8.6 mg/dL (8.5-10.1); CHLORIDE 102 mmol/L (98-107); CREATININE 0.95 mg/dL (0.7-1.3)
[2018-12-15 22:03] LABS: TROPONIN I < 0.015 ng/mL (0.000-0.045)
== END 2018-12-16 01:52 | disposition home or self-care (01) ==
LOC: ED 22:48
DX: F10.220 Alcohol dependence with intoxication, uncomplicated (principal); F10.20 Alcohol dependence, uncomplicated; Z72.9 Problem related to lifestyle, unspecified; J44.9 Chronic obstructive pulmonary disease, unspecified; F17.200 Nicotine dependence, unspecified, uncomplicated
CPT/HCPCS: 36415; 71045; 80048; 80307; 82040; 84484; 85025; 93005; 99284

== ENCOUNTER 2018-12-18 14:22 | Emergency (ER) | payer MEDICARE ==
[~2018-12-18] VITALS: Ht 175.3 cm; Wt 68.6 kg
[2018-12-18 14:26] VITALS: BP 148/79
--- NOTE | 2018-12-18 14:47 | NUR ---
PHLEBOTOMY IS AT THE BEDSIDE FOR BLOOD SAMPLING
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
--- NOTE | 2018-12-18 15:15 | NUR ---
ROSS (RN) IS ASSUMING CARE OF THIS PT AT THIS TIME. SBAR REPORT WAS EXCHANGED AT THE BEDSIDE.
--- NOTE | 2018-12-18 15:24 | NUR ---
Discharge instructions discussed with patient, questions answered. Patient states that he does not want to leave, patient provided with bus pass for transportation. Security at bedside to encourage patient's departure.
== END 2018-12-18 15:27 | disposition home or self-care (01) ==
LOC: EDBD 15:20 → ED 15:20
DX: M62.838 Other muscle spasm (principal); I10 Essential (primary) hypertension; K21.9 Gastro-esophageal reflux disease without esophagitis; J44.9 Chronic obstructive pulmonary disease, unspecified; F17.200 Nicotine dependence, unspecified, uncomplicated; Z88.0 Allergy status to penicillin
CPT/HCPCS: 36415; 80047; 99283

== ENCOUNTER 2019-01-02 14:02 | Emergency (ER) | payer MEDICARE ==
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
--- NOTE | 2019-01-02 15:03 | NUR ---
SBAR report received from RNDaniel.
--- NOTE | 2019-01-02 15:03 | NUR ---
BLANKA (RN) IS ASSUMING CARE OF THIS PT AT THIS TIME. SBAR REPORT WAS EXCHANGED AT THE BEDSIDE.
--- NOTE | 2019-01-02 17:06 | NUR ---
Pt sleeping, pt removed pulse ox from finger, this RN in to assess pt and replace pulse ox, pt opens eyes to touch, pt unable to answer questions or keep his eyes open during short conversation. Heavy ETOH odor present.
--- NOTE | 2019-01-02 18:00 | NUR ---
Pt sleeping on gurney, pt states he's unable to ambulate at this time. Pt remains on monitors, VSS.
[2019-01-02 19:02] VITALS: BP 140/54
--- NOTE | 2019-01-02 19:03 | NUR ---
Patientgiven discharge instructions and he has confirmed that he understands the instructions. Patient ambulatory with steady gait.
== END 2019-01-02 19:03 | disposition home or self-care (01) ==
LOC: ED 15:07
DX: S00.93XA Contusion of unspecified part of head, initial encounter (principal); F10.20 Alcohol dependence, uncomplicated; W01.0XXA Fall on same level from slipping, tripping and stumbling without subsequent striking against object, initial encounter; F32.9 Major depressive disorder, single episode, unspecified; K21.9 Gastro-esophageal reflux disease without esophagitis; J44.9 Chronic obstructive pulmonary disease, unspecified; F17.200 Nicotine dependence, unspecified, uncomplicated; Z88.0 Allergy status to penicillin; Y93.89 Activity, other specified; Y92.410 Unspecified street and highway as the place of occurrence of the external cause; Y99.8 Other external cause status
CPT/HCPCS: 70450; 99284

== ENCOUNTER 2019-01-03 10:07 | Emergency (ER) | payer MEDICARE ==
[~2019-01-03] VITALS: Ht 175.3 cm; Wt 67.0 kg
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
--- NOTE | 2019-01-03 10:41 | NUR ---
PT TO RADIOLOGY FOR CT
--- NOTE | 2019-01-03 10:48 | NUR ---
PT RETURN FROM CT.
--- NOTE | 2019-01-03 11:16 | NUR ---
PT MOSTLY SLEEPING, AROUSES TO NAME, WHEN ASKED HOW HE IS DOING, STATES "I DONT KNOW" NO NEEDS EXPRESSED AT THIS TIME.
--- NOTE | 2019-01-03 11:44 | NUR ---
PT ASSISTED WITH USING URINAL
--- NOTE | 2019-01-03 13:33 | NUR ---
PT AWAKE, USING URINAL, PT AMB IN ROOM. NO IV TO DC, REVIEWED DC INSTRUCTIONS WITH PT. PT LEFT AMB, PUSHING W/C, GAIT STEADY
[2019-01-03 13:34] VITALS: BP 142/89
== END 2019-01-03 13:36 | disposition home or self-care (01) ==
LOC: ED 11:22
DX: F10.129 Alcohol abuse with intoxication, unspecified (principal); F32.9 Major depressive disorder, single episode, unspecified; K21.9 Gastro-esophageal reflux disease without esophagitis; J44.9 Chronic obstructive pulmonary disease, unspecified; G31.1 Senile degeneration of brain, not elsewhere classified
CPT/HCPCS: 70450; 99284

== ENCOUNTER 2019-01-04 11:32 | Emergency (ER) | payer MEDICARE ==
[~2019-01-04] VITALS: Ht 175.3 cm; Wt 72.7 kg
--- NOTE | 2019-01-04 12:42 | NUR ---
PT TO CT
--- NOTE | 2019-01-04 13:12 | NUR ---
PT SLEEPING IN GURNEY, EQUAL CHEST RISE AND FALL, IN VIEW OF NURSES STATION. PT ON MONITOR, VSS ON 2LNC, CT RESULTS NEGATIVE. AWARE. CALL LIGHT WITHIN REACH.
[2019-01-04] MEDS ORDERED: ACETAMINOPHEN 325 MG TABLET PO ONE (13:30)
[2019-01-04] MEDS ORDERED: PLEASE ENTER HEIGHT AND WEIGHT MC SCH (14:00)
--- NOTE | 2019-01-04 14:21 | NUR ---
PT SLEEPING IN [facility], REMOVED PULSE OX, REPLACED ON PTS EAR. SAT 99% ON RA. PT REQUESTING JUICE, ASKED IF HE HAD HIS CT SCAN. PT GIVEN JUICE AND INFORMED OF CT RESULTS.
[2019-01-04 15:18] VITALS: BP 156/87
--- NOTE | 2019-01-04 15:30 | NUR ---
PT WAKING UP, GIVEN FOOD AND JUICE. AMBULATED IN HALLWAY WITH STEADY GAIT, PT USES WHEELCHAIR AT BASELINE TO TRAVEL LONGER DISTANCES, WHEELCHAIR AT BEDSIDE, APPROPRIATE FOR DC. NOTIFIED
--- NOTE | 2019-01-04 16:34 | NUR ---
PT STATED TO TECH HE WAS GOING TO BATHROOM, PT DID NOT RETURN FROM BATHROOM TO SIGN DISCHARGE PAPERWORK, LEFT WITHOUT COPIES.
== END 2019-01-04 16:36 | disposition home or self-care (01) ==
LOC: ED 12:30
DX: S06.310A Contusion and laceration of right cerebrum without loss of consciousness, initial encounter (principal); I10 Essential (primary) hypertension; F17.200 Nicotine dependence, unspecified, uncomplicated; W19.XXXA Unspecified fall, initial encounter; Y93.89 Activity, other specified; Y92.410 Unspecified street and highway as the place of occurrence of the external cause; Y99.8 Other external cause status
CPT/HCPCS: 70450; 93005; 99284

== ENCOUNTER 2019-01-06 22:24 | Emergency (ER) | payer MEDICARE ==
[~2019-01-06] VITALS: Ht 175.3 cm; Wt 70.0 kg
--- NOTE | 2019-01-06 23:34 | NUR ---
PT LAYING IN GURNEY W/ EYES CLOSED. EVEN/REGULAR RESPIRATIONS NOTED. SPO2 >90% ON 3L BY NC.
[2019-01-07 00:38] VITALS: BP 144/87
--- NOTE | 2019-01-07 01:00 | NUR ---
PT AMBULATED STEADILY WITH MINERVA CHANG TO BATHROOM
== END 2019-01-07 02:21 | disposition home or self-care (01) ==
LOC: ED 22:32
DX: F10.220 Alcohol dependence with intoxication, uncomplicated (principal); Z72.9 Problem related to lifestyle, unspecified; J44.9 Chronic obstructive pulmonary disease, unspecified; K21.9 Gastro-esophageal reflux disease without esophagitis; I10 Essential (primary) hypertension
CPT/HCPCS: 99283

== ENCOUNTER 2019-01-08 08:13 | Emergency (ER) | payer MEDICARE ==
[~2019-01-08] VITALS: Ht 172.7 cm; Wt 75.0 kg
--- NOTE | 2019-01-08 08:40 | NUR ---
BIB [facility]TOH [address] L[address] AND A COUGH PT REPORTS HERE 3 DAYS AGO FOR THE SAME UNRESOLVED AMBULATED WELL OUT OF WHEEL CHAIR TO THE BED ON REQUESTING CC FIRST RESPONSE WAS "I NEED A PLACE TO STAY"
[2019-01-08] MEDS ORDERED: ONDANSETRON ODT 4 MG PO ONE (09:00)
[2019-01-08] MEDS ORDERED: ONDANSETRON ODT 4 MG ONE (09:24)
--- NOTE | 2019-01-08 09:45 | NUR ---
PT SITTING UP IN THE BED EATING HIS OWN FOOD A04
[2019-01-08 10:40] VITALS: BP 143/82
[2019-01-10] MEDS ORDERED: FOLI-17 PO (13:56)
[2019-01-10] MEDS ORDERED: PANT20TA3 PO (13:56)
[2019-01-10] MEDS ORDERED: CEFD300C37 PO (13:56)
[2019-01-10] MEDS ORDERED: CARV6.2512 PO (13:56)
[2019-01-10] MEDS ORDERED: THIA100T67 PO (13:56)
[2019-01-10] MEDS ORDERED: MULT1TAB60 PO (13:56)
[2019-01-10] MEDS ORDERED: LOSA25TA25 PO (13:56)
[2019-01-10] MEDS ORDERED: GUAI200T3 PO (13:56)
[2019-01-10] MEDS ORDERED: DOXY100T PO (13:56)
== END 2019-01-08 10:43 | disposition home or self-care (01) ==
LOC: ED 10:37
DX: F10.220 Alcohol dependence with intoxication, uncomplicated (principal); Z59.0 Homelessness; K21.9 Gastro-esophageal reflux disease without esophagitis; F17.210 Nicotine dependence, cigarettes, uncomplicated
CPT/HCPCS: 99283; Q0162

== ENCOUNTER 2019-01-12 23:22 | Emergency (ER) | payer MEDICARE ==
[~2019-01-12] VITALS: Ht 175.3 cm; Wt 71.0 kg
[~2019-01-12 23:22] MED LIST changes: +DOXY100T PO; +GUAI200T3 PO; +PANT20TA3 PO
--- NOTE | 2019-01-12 23:34 | NUR ---
Carolyn PEÑA, at bedside to evaluate pt.
--- NOTE | 2019-01-13 00:25 | NUR ---
Pt to imaging, with tech, via gukatie.
--- NOTE | 2019-01-13 01:10 | NUR ---
Pt sleeping on gurney, remains on monitors, VSS. Chart up for recheck.
[2019-01-13 01:51] VITALS: BP 104/54
--- NOTE | 2019-01-13 01:52 | NUR ---
Patient/Caregiver given discharge instructions and they have confirmed that they understand the instructions. Patient ambulatory with steady gait, using wheelchair to keep stable while ambulating.
== END 2019-01-13 01:53 | disposition home or self-care (01) ==
LOC: EDBD → ED 01-13
DX: S06.310A Contusion and laceration of right cerebrum without loss of consciousness, initial encounter (principal); F10.220 Alcohol dependence with intoxication, uncomplicated; J44.9 Chronic obstructive pulmonary disease, unspecified; K21.9 Gastro-esophageal reflux disease without esophagitis; I10 Essential (primary) hypertension; F32.9 Major depressive disorder, single episode, unspecified; W01.0XXA Fall on same level from slipping, tripping and stumbling without subsequent striking against object, initial encounter; Y93.89 Activity, other specified; Y92.59 Other trade areas as the place of occurrence of the external cause; Y99.8 Other external cause status
CPT/HCPCS: 70450; 99284

== ENCOUNTER 2019-01-14 18:56 | Emergency (ER) | payer MEDICARE ==
[~2019-01-14] VITALS: Ht 175.3 cm; Wt 72.0 kg
--- NOTE | 2019-01-14 19:10 | NUR ---
PT NOTED TO HAVE LACERATION AT EYEBROW AND ABRASION TO NOSE. PT STATES HE FELL YESTERDAY. A&O, SLURRED SPEECH NOTED
--- NOTE | 2019-01-14 20:18 | NUR ---
PT RESISTANT TO HAVING FACE CLEANED BY TECH. WILL ATTEMPT LATER. PT SLEEPING
[2019-01-14 21:36] VITALS: BP 131/70
--- NOTE | 2019-01-14 21:57 | NUR ---
PT SLEEPING ON GURNEY, O2 VIA NC PLACED ON PT. PT STILL REFUSING ANYONE TO CLEAN IN LAC. WILL CONT TO MONITOR.
[2019-01-14] MEDS ORDERED: BACITRACIN ZINC OINT 500U/GM, 0.9 GM ONE (22:08)
== END 2019-01-14 22:30 | disposition home or self-care (01) ==
LOC: EDBD → ED 19:34 → EDBD 19:34 → ED 22:30
DX: S00.81XA Abrasion of other part of head, initial encounter (principal); I10 Essential (primary) hypertension; Z72.9 Problem related to lifestyle, unspecified; K21.9 Gastro-esophageal reflux disease without esophagitis; J44.9 Chronic obstructive pulmonary disease, unspecified; F10.220 Alcohol dependence with intoxication, uncomplicated; X58.XXXA Exposure to other specified factors, initial encounter; Y93.89 Activity, other specified; Y92.89 Other specified places as the place of occurrence of the external cause; Y99.8 Other external cause status
CPT/HCPCS: 70450; 99284

== ENCOUNTER 2019-01-15 22:21 | Emergency (ER) | payer MEDICARE ==
[~2019-01-15] VITALS: Ht 175.3 cm; Wt 80.0 kg
[2019-01-15 22:40] VITALS: BP 153/70
--- NOTE | 2019-01-15 23:33 | NUR ---
PT REFUSING TO LEAVE AFTER BEING DISCHARGED. SECURITY ASSISTING PT OUT.
== END 2019-01-15 23:45 | disposition home or self-care (01) ==
LOC: ED 23:33
DX: F10.229 Alcohol dependence with intoxication, unspecified (principal); M79.605 Pain in left leg; M79.604 Pain in right leg; J44.9 Chronic obstructive pulmonary disease, unspecified; K21.9 Gastro-esophageal reflux disease without esophagitis; I10 Essential (primary) hypertension; F17.200 Nicotine dependence, unspecified, uncomplicated
CPT/HCPCS: 99283

== ENCOUNTER 2019-01-16 12:44 | Emergency (ER) | payer MEDICARE ==
[~2019-01-16] VITALS: Ht 175.3 cm; Wt 73.0 kg
[2019-01-16] MEDS ORDERED: BACITRACIN ZINC OINT 500U/GM, 0.9 GM ONE (13:11)
[2019-01-16 15:14] VITALS: BP 131/68
== END 2019-01-16 15:47 | disposition home or self-care (01) ==
LOC: EDBD → ED 15:10
DX: S00.31XA Abrasion of nose, initial encounter (principal); Z72.9 Problem related to lifestyle, unspecified; F10.20 Alcohol dependence, uncomplicated; I10 Essential (primary) hypertension; F32.9 Major depressive disorder, single episode, unspecified; K21.9 Gastro-esophageal reflux disease without esophagitis; J44.9 Chronic obstructive pulmonary disease, unspecified; W01.0XXA Fall on same level from slipping, tripping and stumbling without subsequent striking against object, initial encounter; Y93.89 Activity, other specified; Y92.410 Unspecified street and highway as the place of occurrence of the external cause; Y99.8 Other external cause status
CPT/HCPCS: 70450; 70486; 71045; 99284

== ENCOUNTER 2019-01-18 05:35 | Emergency (ER) | payer MEDICARE ==
[~2019-01-18] VITALS: Ht 167.6 cm; Wt 72.0 kg
--- NOTE | 2019-01-18 05:48 | NUR ---
PT BROUGHT IN BY EMS. PT SMELLS OF ETOH, PT SPEECH SLURRED. PT ON VITALS MONITORS, PT PLACED ON 6L O2 PER N/C DUE TO DESATING ON RA. PT PLACED IN FOWLERS POSITION. PT GIVEN WARM BLANKET.
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
[2019-01-18 06:10] VITALS: BP 131/78
--- NOTE | 2019-01-18 06:11 | NUR ---
PT SLEEPING IN [facility]. RESPS EVEN AND UNLABORED. BP/SPO2 MONITORS IN PLACE. CALL LIGHT WITHIN REACH.
--- NOTE | 2019-01-18 06:47 | NUR ---
received bedside report from MINERVA Alfaro. pt sleeping on gurney. pt smells of etoh odor. vss. will continue to monitor.
--- NOTE | 2019-01-18 06:52 | NUR ---
REPORT GIVEN TO JAGDISH PALMA.
--- NOTE | 2019-01-18 08:40 | NUR ---
LATE ENTRY FOR 0800: PT SLEEPING ON GURNEY. NO ACUTE DISTRESS NOTED. RESPS EQUAL AND UNLABORED. WILL CONTINUE TO MONITOR.
--- NOTE | 2019-01-18 08:41 | NUR ---
DIET TRAY DELIVERED.
--- NOTE | 2019-01-18 09:19 | NUR ---
PT ABLE TO STAND BEDSIDE. PT SLIGHTLY UNSTEADY. WILL CONTINUE TO MONITOR. PT ATE 100% OF BREAKFAST.
--- NOTE | 2019-01-18 10:56 | NUR ---
Patient/Caregiver given discharge instructions and they have confirmed that they understand the instructions. Patient ambulatory with steady gait. PT LEFT WITH ALL PERSONAL BELONGINGS.
--- NOTE | 2019-01-18 10:56 | NUR ---
LATE ENTRY FOR 1015: PT SLEEPING ON GURNEY. PT STILL MTF. RESPS EQUAL AND UNLABORED. WILL CONTINUE TO MONITOR.
== END 2019-01-18 10:59 | disposition home or self-care (01) ==
LOC: EDBD → ED 05:45
DX: F10.229 Alcohol dependence with intoxication, unspecified (principal); I10 Essential (primary) hypertension; F17.210 Nicotine dependence, cigarettes, uncomplicated; Y90.9 Presence of alcohol in blood, level not specified
CPT/HCPCS: 99283

== ENCOUNTER 2019-01-20 00:58 | Emergency (ER) | payer MEDICARE ==
[~2019-01-20] VITALS: Ht 175.3 cm; Wt 70.0 kg
--- NOTE | 2019-01-20 01:22 | NUR ---
PT HERE FOR HEADACHE THAT HURTS "RIGHT BETWEEN THE TEMPLES PER PT."
[2019-01-20] MEDS ORDERED: IBUPROFEN 600 MG TABLET PO ONE (01:30)
[2019-01-20] MEDS ORDERED: IBUPROFEN 600 MG TABLET ONE (01:34)
--- NOTE | 2019-01-20 02:29 | NUR ---
pt d/c with d/c summary. all qeustions answered. pt ambulates to registration desk with steady gait for d/c home. pt denies any other eneds pertaining to this visit.
[2019-01-20 02:50] VITALS: BP 124/74
== END 2019-01-20 02:53 | disposition home or self-care (01) ==
LOC: EDBD → ED 01:02
DX: F10.229 Alcohol dependence with intoxication, unspecified (principal); G43.C0 Periodic headache syndromes in child or adult, not intractable; Z72.9 Problem related to lifestyle, unspecified; F17.200 Nicotine dependence, unspecified, uncomplicated; K21.9 Gastro-esophageal reflux disease without esophagitis; J44.9 Chronic obstructive pulmonary disease, unspecified; F32.9 Major depressive disorder, single episode, unspecified; I10 Essential (primary) hypertension; Z63.8 Other specified problems related to primary support group
CPT/HCPCS: 99283

== ENCOUNTER 2019-02-21 18:48 | Emergency (ER) | payer MEDICARE ==
[2019-02-21 18:54] VITALS: BP 121/73
--- NOTE | 2019-02-21 19:12 | NUR ---
PT STANDING AND YELLING AT NURSING STAFF, VERBALLY AGGRESSIVE. PT AWARE THAT THERE ARE CURRENTLY NO ROOMS AND THAT HE WILL BE ROOMED WHEN ONE BECOMES AVAILABLE., REMAINS AGGRESSIVE AND AGITATED AND STATES THAT HE IS LEAVING, ARACELI PALMA ATTEMPTS TO HAVE PT STAY AND GET HELP, PT REFUSING.
--- NOTE | 2019-02-21 19:14 | NUR ---
PT ELOPED OUT AMBULANCE BAY DOORS WITH STEADY GAIT, A@OX4, SEEN BY ERP, DECLINED TO STAY
== END 2019-02-21 19:19 | disposition left against medical advice (07) ==
LOC: ED 19:13
DX: F10.120 Alcohol abuse with intoxication, uncomplicated (principal); I10 Essential (primary) hypertension; K21.9 Gastro-esophageal reflux disease without esophagitis; J44.9 Chronic obstructive pulmonary disease, unspecified; Z72.9 Problem related to lifestyle, unspecified; Z75.9 Unspecified problem related to medical facilities and other health care; Z91.14 Patient's other noncompliance with medication regimen; Z63.8 Other specified problems related to primary support group; Y90.9 Presence of alcohol in blood, level not specified; Z87.01 Personal history of pneumonia (recurrent)
CPT/HCPCS: 99283

== ENCOUNTER 2019-03-07 13:21 | Emergency (ER) | payer MEDICARE ==
[~2019-03-07] VITALS: Ht 175.3 cm; Wt 68.2 kg
--- NOTE | 2019-03-07 14:37 | NUR ---
NO ANSWER WHEN CALLED FOR TRIAGE
[2019-03-07 14:39] VITALS: BP 125/77
--- NOTE | 2019-03-07 15:21 | NUR ---
FIRST CONTACT WITH PT. PT C/O LEFT ANKLE PAIN SINCE 0800, DENIES TRAUMA. PT'S AOX4. RESPS EVEN AND UNLABORED.
--- NOTE | 2019-03-07 16:16 | NUR ---
REPORT GIVEN TO CHANDNI
== END 2019-03-07 16:25 | disposition home or self-care (01) ==
LOC: ED 16:14
DX: S93.492A Sprain of other ligament of left ankle, initial encounter (principal); F17.200 Nicotine dependence, unspecified, uncomplicated; X50.1XXA Overexertion from prolonged static or awkward postures, initial encounter; Y93.89 Activity, other specified; Y92.009 Unspecified place in unspecified non-institutional (private) residence as the place of occurrence of the external cause; Y99.8 Other external cause status
CPT/HCPCS: 99283

== ENCOUNTER 2019-04-08 21:42 | Emergency (ER) | payer MEDICARE ==
[~2019-04-08] VITALS: Ht 175.3 cm; Wt 75.0 kg
[2019-04-09 01:32] VITALS: BP 130/70
== END 2019-04-09 01:35 | disposition home or self-care (01) ==
LOC: EDBD → ED 04-09 01:29
DX: R05 Cough (principal); F10.120 Alcohol abuse with intoxication, uncomplicated; Y90.0 Blood alcohol level of less than 20 mg/100 ml; Z72.9 Problem related to lifestyle, unspecified; J44.9 Chronic obstructive pulmonary disease, unspecified; K21.9 Gastro-esophageal reflux disease without esophagitis
CPT/HCPCS: 36415; 71045; 80048; 80307; 82040; 85025; 93005; 99284

== ENCOUNTER 2019-07-12 09:41 | Emergency (ER) | payer MEDICARE ==
[~2019-07-12] VITALS: Ht 175.3 cm; Wt 68.0 kg
[~2019-07-12 09:41] MED LIST changes: +ACET325T26 PO; -ALBU6.7H INH; +ALBU6.7H8 INH; +AZIT500T10 PO; -AZIT500T5 PO; +BUDE10.22 INH; -DOXY100T10 PO; +DOXY100T23 PO; -GUAI200T3 PO; +GUAI200T37 PO; -HYDR-3307 PO; +HYDR-36 PO; +INHALER; +IPRA12.9 INH; +LISI2.5T PO; +METH750T87 PO; +METO50TA82 PO; +NICO-487 TD; +POLY17PO5 PO; +PRED5TAB PO; +QUET200T4 PO; +QUET25TA5 PO; +TIOT18CA INH
--- NOTE | 2019-07-12 10:13 | NUR ---
PATIENT BROUGTH BACK FROM TRIAGE WITH CHIEF COMPLAINT OF LEFT SHOULDER PAIN AND HEADACHE AFTER A FALL FEW DAYS AGO. PATIENT IS ALERT AND ADMITS TO ETOH.
[2019-07-12 10:47] LABS: BASOPHILS # (AUTO) 0.06 x10^3/uL (0-0.1); BASOPHILS % (AUTO) 1 % (0-1); EOSINOPHILS # (AUTO) 0.19 x10^3/uL (0-0.4); EOSINOPHILS % (AUTO) 2 % (1-7); LYMPHOCYTES # (AUTO) 2.16 x10^3/uL (1-3.4); LYMPHOCYTES % (AUTO) 24 % (22-44); MD NO; MEAN CORPUSCULAR HEMOGLOBIN 30.7 pg (27.5-34.5); MEAN CORPUSCULAR HGB CONC 32.7 g/dL (33.2-36.2); MEAN CORPUSCULAR VOLUME 93.9 fL (81-97); MEAN PLATELET VOLUME 7.7 fL (7.4-10.4); MONOCYTES # (AUTO) 0.24 x10^3/uL (0.2-0.8); MONOCYTES % (AUTO) 3 % (2-9); NEUTROPHILS # (AUTO) 6.35 x10^3/uL (1.8-6.8); NEUTROPHILS % (AUTO) 71 % (42-75); PLATELET COUNT 466 x10^3/uL (130-400); RED BLOOD COUNT 4.46 x10^6/uL (4.38-5.82); RED CELL DISTRIBUTION WIDTH 16.7 % (9.4-14.8)
--- NOTE | 2019-07-12 10:47 | NUR ---
PATIENT TO IMAGING
[2019-07-12 10:58] LABS: ANION GAP 9 mmol/L (5-15); CALCIUM 9.1 mg/dL (8.5-10.1); CHLORIDE 104 mmol/L (98-107)
--- NOTE | 2019-07-12 11:13 | NUR ---
PATIENT RESTING IN BED. NO NEURO CHANGES
--- NOTE | 2019-07-12 11:15 | NUR ---
C COLLAR APPLIED. PATIENT TO IMAGING
--- NOTE | 2019-07-12 12:43 | NUR ---
CT WAITING FOR IV ACCESS
--- NOTE | 2019-07-12 13:00 | NUR ---
ULTRASOUND PIV OBTAINED, READY FOR CTA
[2019-07-12] MEDS ORDERED: OMNIPAQUE 350 MG/ML, 100ML BOTTLE ONE (13:35)
[2019-07-12] MEDS ORDERED: LORazepam 2 MG/ML, 1ML ONE (14:06)
--- NOTE | 2019-07-12 14:24 | NUR ---
PATIENT AWARE OF [place] [facility] MEDICATED ORDERED BY LORENA PALMA.
--- NOTE | 2019-07-12 14:27 | NUR ---
REPORT CALLED TO [facility]. NO QUESTIONS AT THIS TIME.
[2019-07-12 14:28] VITALS: BP 154/88
[2019-07-12] MEDS ORDERED: LORazepam 2 MG/ML, 1ML IVPush ONE (14:30)
--- NOTE | 2019-07-12 15:06 | NUR ---
REPORT GIVEN TO CF CCT RN.
== END 2019-07-12 15:09 | disposition short-term general hospital (02) ==
LOC: MERGE 09:41 → ED 12:24
DX: S12.501A Unspecified nondisplaced fracture of sixth cervical vertebra, initial encounter for closed fracture (principal); S46.012A Strain of muscle(s) and tendon(s) of the rotator cuff of left shoulder, initial encounter; S15.102A Unspecified injury of left vertebral artery, initial encounter; F10.239 Alcohol dependence with withdrawal, unspecified; W19.XXXA Unspecified fall, initial encounter; Y93.89 Activity, other specified; Y92.89 Other specified places as the place of occurrence of the external cause; Y99.8 Other external cause status; Y90.8 Blood alcohol level of 240 mg/100 ml or more
CPT/HCPCS: 36415; 70450; 70498; 72125; 73020; 80048; 80307; 85025; 93005; 96374; 99291; J2060; Q9967

== ENCOUNTER 2019-07-17 11:08 | Emergency (ER) | payer MEDICARE ==
[~2019-07-17] VITALS: Ht 175.3 cm; Wt 72.0 kg
--- NOTE | 2019-07-17 11:26 | NUR ---
pt biba for etoh intoxication and complaint of generalized pain. pt demonstrate 4/5 strength to all extremities, a&ox4, speech slurred. bed locked and placed in lowest position, call light in reach, pt instructed on use. pt educated not to get out of bed without staff assist. urinal at bedside, in reach. bp and spo2 monitors in place.
--- NOTE | 2019-07-17 11:28 | NUR ---
report given to break RN Aric.
--- NOTE | 2019-07-17 12:28 | NUR ---
Pt provided with snack, tolerating PO well with no n/v. pt a&o, resps even and unlabored. slurred speech improving. pt has no complaint at this time.
--- NOTE | 2019-07-17 12:50 | NUR ---
PT FINISHED SNACK, NO S/SX ASPIRATION. PT A&O, RESPS EVEN AND UNLABORED, NEURO INTACT. PT TO BE DC'D WHEN SAFE WITH AMBULATION.
--- NOTE | 2019-07-17 14:15 | NUR ---
PT SLEEPING, RESPS EVEN AND UNLABORED. NADN.
--- NOTE | 2019-07-17 14:26 | NUR ---
this RN attempted to ambulate pt, pt is non-ambulatory at this time. pt is a&o x 4, slurred speech mostly resolved. neuro intact. bp and spo2 monitors in place. call light in reach. pt to be dc'd when ambulatory.
--- NOTE | 2019-07-17 14:45 | NUR ---
REPORT GIVEN TO MINERVA HART. PT SLEEPING, RESPS EVEN AND UNLABORED. BP AND SPO2 MONITORS IN PLACE. CALL LIGHT IN REACH.
--- NOTE | 2019-07-17 14:52 | NUR ---
Receieved report from MINERVA John. All questions answered. Assuming care of pt at this time. Pt resting on gurney with bedrails up x 2 with call light within reach. Pt connected to NIBP cuff and continous pulse ox monitor. No needs expressed at this time.
[2019-07-17 16:11] VITALS: BP 125/59
--- NOTE | 2019-07-17 16:11 | NUR ---
Pt resting on gurney watching TV. NADN. Pt has unlabored respirations with even chest rise and fall. Bedrails up x 2 and call light within reach. Pt connected to NIBP cuff and continous pulse ox monitor.
--- NOTE | 2019-07-17 16:28 | NUR ---
Pt ambulates from [facility] to leeper with steady gait and balance. NADN. No other needs expressed. Provided pt water, jose crackers, and peanutbutter per request. Patient given discharge instructions and they have confirmed that they understand the instructions. Patient ambulatory with steady gait. Pt requesting bus pass. Providing pass for pt. Pt left with d/c paperwork and all personal belongings.
== END 2019-07-17 16:31 | disposition home or self-care (01) ==
LOC: ED 13:29
DX: F10.120 Alcohol abuse with intoxication, uncomplicated (principal); I10 Essential (primary) hypertension; Y90.9 Presence of alcohol in blood, level not specified
CPT/HCPCS: 99283

== ENCOUNTER 2019-07-20 01:20 | Emergency (ER) | payer MEDICARE ==
[~2019-07-20] VITALS: Ht 175.3 cm; Wt 68.7 kg
[2019-07-20 02:56] VITALS: BP 138/88
== END 2019-07-20 03:16 | disposition home or self-care (01) ==
LOC: ED 01:58
DX: S06.0X0A Concussion without loss of consciousness, initial encounter (principal); F10.10 Alcohol abuse, uncomplicated; R51 Headache; Z72.9 Problem related to lifestyle, unspecified; Y90.9 Presence of alcohol in blood, level not specified; V00.211A Fall from ice-skates, initial encounter; Y93.89 Activity, other specified
CPT/HCPCS: 70450; 72125; 99284

== ENCOUNTER 2019-07-21 09:24 | Emergency (ER) | payer MEDICARE ==
[~2019-07-21] VITALS: Ht 172.7 cm; Wt 70.0 kg
[2019-07-21 09:28] VITALS: BP 136/71
--- NOTE | 2019-07-21 09:49 | NUR ---
SR UP X 2, CALL LIGHT WITHIN REACH. PT HAS REMOVED HIS C COLLAR AND IS SLEEPING/NAD.
[2019-07-21 09:58] LABS: BASOPHILS # (AUTO) 0.07 x10^3/uL (0-0.1); BASOPHILS % (AUTO) 1 % (0-1); EOSINOPHILS # (AUTO) 0.03 x10^3/uL (0-0.4); EOSINOPHILS % (AUTO) 0 % (1-7); LYMPHOCYTES # (AUTO) 2.57 x10^3/uL (1-3.4); LYMPHOCYTES % (AUTO) 28 % (22-44); MD NO; MEAN CORPUSCULAR HEMOGLOBIN 30.6 pg (27.5-34.5); MEAN CORPUSCULAR HGB CONC 33.4 g/dL (33.2-36.2); MEAN CORPUSCULAR VOLUME 91.7 fL (81-97); MEAN PLATELET VOLUME 6.9 fL (7.4-10.4); MONOCYTES # (AUTO) 0.63 x10^3/uL (0.2-0.8); MONOCYTES % (AUTO) 7 % (2-9); NEUTROPHILS # (AUTO) 5.83 x10^3/uL (1.8-6.8); NEUTROPHILS % (AUTO) 64 % (42-75); PLATELET COUNT 521 x10^3/uL (130-400); RED BLOOD COUNT 4.47 x10^6/uL (4.38-5.82); RED CELL DISTRIBUTION WIDTH 16.8 % (9.4-14.8)
[2019-07-21 10:06] LABS: ALANINE AMINOTRANSFERASE 29 U/L (12-78); ALBUMIN 3.8 g/dL (3.4-5.0); ANION GAP 10 mmol/L (5-15); CALCIUM 8.7 mg/dL (8.5-10.1); CHLORIDE 102 mmol/L (98-107)
[2019-07-21 10:08] LABS: ALKALINE PHOSPHATASE 112 U/L (45-117); BILIRUBIN,TOTAL 0.3 mg/dL (0.2-1.0); TOTAL PROTEIN 7.7 g/dL (6.4-8.2)
--- NOTE | 2019-07-21 10:39 | NUR ---
PT SLEEPING, NAD. BED REMAINS IN LOW POSITION WITH SR X 2 UP.
--- NOTE | 2019-07-21 11:13 | NUR ---
MEAL TRAY ORDERED, JUICE AND CHICKEN BROTH PROVIDED PER PT REQUEST.
--- NOTE | 2019-07-21 11:53 | NUR ---
MEAL TRAY PROVIDED
--- NOTE | 2019-07-21 12:02 | NUR ---
PT AMBULATING WITH STEADY GAIT IN [place], STATING "I'M READY TO GO". DISCHARGE PAPERS PROVIDED.
== END 2019-07-21 12:06 | disposition home or self-care (01) ==
LOC: ED 12:00
DX: S12.501A Unspecified nondisplaced fracture of sixth cervical vertebra, initial encounter for closed fracture (principal); F10.229 Alcohol dependence with intoxication, unspecified; I10 Essential (primary) hypertension; N28.9 Disorder of kidney and ureter, unspecified; Z72.9 Problem related to lifestyle, unspecified; W19.XXXA Unspecified fall, initial encounter; Y93.89 Activity, other specified; Y92.89 Other specified places as the place of occurrence of the external cause; Y99.8 Other external cause status; Y90.8 Blood alcohol level of 240 mg/100 ml or more
CPT/HCPCS: 36415; 80053; 80307; 83735; 85025; 99283

== ENCOUNTER 2019-07-22 11:47 | Emergency (ER) ==
[~2019-07-22] VITALS: Ht 175.3 cm; Wt 69.1 kg
[2019-07-22 11:53] VITALS: BP 169/89
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
--- NOTE | 2019-07-22 12:24 | NUR ---
PA AT BEDSIDE.
[2019-07-22] MEDS ORDERED: METHOCARBAMOL 750 MG TABLET ONE (12:27)
[2019-07-22] MEDS ORDERED: IBUPROFEN 200 MG TABLET ONE (12:27)
--- NOTE | 2019-07-22 12:29 | NUR ---
PT MEDICATED PER ORDERS.
[2019-07-22] MEDS ORDERED: METHOCARBAMOL 750 MG TABLET PO ONE (12:30)
[2019-07-22] MEDS ORDERED: IBUPROFEN 200 MG TABLET PO ONE (12:30)
--- NOTE | 2019-07-22 12:45 | NUR ---
PT REQUESTING BROTH AND CRACKERS, OK PER PA, PT PROVIDED SNACKS.
--- NOTE | 2019-07-22 13:20 | NUR ---
Patient/Caregiver given discharge instructions and they have confirmed that they understand the instructions. Patient ambulatory with steady gait.
== END 2019-07-22 13:21 | disposition home or self-care (01) ==
LOC: ED 12:55
DX: S16.1XXA Strain of muscle, fascia and tendon at neck level, initial encounter (principal); M54.6 Pain in thoracic spine; K21.9 Gastro-esophageal reflux disease without esophagitis; I10 Essential (primary) hypertension; F17.200 Nicotine dependence, unspecified, uncomplicated; W18.30XA Fall on same level, unspecified, initial encounter; Y93.89 Activity, other specified; Y92.89 Other specified places as the place of occurrence of the external cause; Y99.8 Other external cause status
CPT/HCPCS: 99283

== ENCOUNTER 2019-07-29 20:50 | Emergency (ER) | payer MEDICARE ==
[~2019-07-29] VITALS: Ht 175.3 cm; Wt 68.0 kg
[2019-07-29 20:54] VITALS: BP 140/87
== END 2019-07-29 22:05 | disposition home or self-care (01) ==
LOC: ED 22:04
DX: S43.52XA Sprain of left acromioclavicular joint, initial encounter (principal); F10.120 Alcohol abuse with intoxication, uncomplicated; I10 Essential (primary) hypertension; K21.9 Gastro-esophageal reflux disease without esophagitis; F17.200 Nicotine dependence, unspecified, uncomplicated; Z72.9 Problem related to lifestyle, unspecified; Y90.9 Presence of alcohol in blood, level not specified; Z87.01 Personal history of pneumonia (recurrent); W19.XXXA Unspecified fall, initial encounter; Y93.89 Activity, other specified; Y92.89 Other specified places as the place of occurrence of the external cause; Y99.8 Other external cause status
CPT/HCPCS: 99283

== ENCOUNTER 2019-08-04 18:40 | Emergency (ER) | payer MEDICARE ==
[~2019-08-04] VITALS: Ht 175.3 cm; Wt 68.4 kg
[2019-08-04 18:50] VITALS: BP 141/82
--- NOTE | 2019-08-04 20:55 | NUR ---
PT AMBULATING STEADILY AROUND LOBBY, CURSING AT OTHER PATIENTS. SECURITY ESCORTED PT OFF PROPERTY.
== END 2019-08-04 20:57 | disposition home or self-care (01) ==
LOC: ED 20:51
DX: M25.512 Pain in left shoulder (principal); G89.29 Other chronic pain; Z72.9 Problem related to lifestyle, unspecified; F10.120 Alcohol abuse with intoxication, uncomplicated; K21.9 Gastro-esophageal reflux disease without esophagitis; I10 Essential (primary) hypertension; W18.30XA Fall on same level, unspecified, initial encounter; Y93.89 Activity, other specified; Y92.410 Unspecified street and highway as the place of occurrence of the external cause; Y99.8 Other external cause status
CPT/HCPCS: 99283

== ENCOUNTER 2019-08-05 14:10 | Emergency (ER) | payer MEDICARE ==
[~2019-08-05] VITALS: Ht 175.3 cm; Wt 69.3 kg
--- NOTE | 2019-08-05 15:16 | NUR ---
PT HERE WITH C/O LOWER BACK PAIN. PT STATES HE FELL 10 HOURS AGO, LAST ETOH USE 0800 TODAY. PT DRESSED IN GOWN AND ATTACHED TO MONITOR. PT AAO X 4, PA AT BEDSIDE, CALL LIGHT WITHIN REACH, NAD, ROOM AIR. PT STATES HE HAS NEVER FOLLOWED UP FOR INITIAL INJURY TO LOWER BACK THAT RESULTS IN COMPRESSION FRACTURE.
[2019-08-05 15:18] VITALS: BP 146/88
--- NOTE | 2019-08-05 15:22 | NUR ---
BREATHALYZER PERFORMED BY THIS RN, 0.188 RESULTS.
[2019-08-05] MEDS ORDERED: KETOROLAC 30 MG/1 ML ONE (15:25)
[2019-08-05] MEDS ORDERED: METHOCARBAMOL 750 MG TABLET ONE (15:25)
--- NOTE | 2019-08-05 15:28 | NUR ---
PT MEDICATED PER ORDER.
[2019-08-05] MEDS ORDERED: KETOROLAC 30 MG/1 ML IM ONE (15:30)
[2019-08-05] MEDS ORDERED: METHOCARBAMOL 750 MG TABLET PO ONE (15:30)
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
--- NOTE | 2019-08-05 16:02 | NUR ---
Patient/Caregiver given discharge instructions and they have confirmed that they understand the instructions. Patient ambulatory with steady gait.
== END 2019-08-05 16:21 | disposition home or self-care (01) ==
LOC: ED 16:15
DX: S39.012A Strain of muscle, fascia and tendon of lower back, initial encounter (principal); S32.020D Wedge compression fracture of second lumbar vertebra, subsequent encounter for fracture with routine healing; F10.220 Alcohol dependence with intoxication, uncomplicated; W00.0XXA Fall on same level due to ice and snow, initial encounter; Y93.89 Activity, other specified; Y92.89 Other specified places as the place of occurrence of the external cause; Y99.8 Other external cause status
CPT/HCPCS: 72110; 96372; 99283; J1885

== ENCOUNTER 2019-08-19 07:32 | Emergency (ER) | payer MEDICARE ==
[~2019-08-19] VITALS: Ht 175.3 cm; Wt 68.0 kg
[2019-08-19 08:06] LABS: BASOPHILS # (AUTO) 0.08 x10^3/uL (0-0.1); BASOPHILS % (AUTO) 1 % (0-1); EOSINOPHILS % (AUTO) 2 % (1-7); LYMPHOCYTES # (AUTO) 1.71 x10^3/uL (1-3.4); LYMPHOCYTES % (AUTO) 27 % (22-44); MD NO; MEAN CORPUSCULAR HGB CONC 31.6 g/dL (33.2-36.2); MEAN CORPUSCULAR VOLUME 94.9 fL (81-97); MEAN PLATELET VOLUME 7.2 fL (7.4-10.4); MONOCYTES # (AUTO) 0.63 x10^3/uL (0.2-0.8); MONOCYTES % (AUTO) 10 % (2-9); NEUTROPHILS # (AUTO) 3.82 x10^3/uL (1.8-6.8); NEUTROPHILS % (AUTO) 60 % (42-75); PLATELET COUNT 300 x10^3/uL (130-400); RED BLOOD COUNT 4.07 x10^6/uL (4.38-5.82); RED CELL DISTRIBUTION WIDTH 19.2 % (9.4-14.8)
[2019-08-19 08:19] LABS: ALBUMIN 3.3 g/dL (3.4-5.0); ANION GAP 10 mmol/L (5-15); CALCIUM 8.2 mg/dL (8.5-10.1); CHLORIDE 112 mmol/L (98-107); CREATININE 1.02 mg/dL (0.7-1.3)
[2019-08-19 08:52] VITALS: BP 132/70
== END 2019-08-19 08:54 | disposition home or self-care (01) ==
LOC: ED 07:52
DX: J00 Acute nasopharyngitis [common cold] (principal); R20.2 Paresthesia of skin; I10 Essential (primary) hypertension; K21.9 Gastro-esophageal reflux disease without esophagitis; Z72.89 Other problems related to lifestyle; Z59.0 Homelessness
CPT/HCPCS: 36415; 71046; 80048; 82040; 85025; 99284

== ENCOUNTER 2019-08-31 18:24 | Emergency (ER) | payer MEDICARE ==
[~2019-08-31] VITALS: Ht 175.3 cm; Wt 67.0 kg
[2019-08-31 18:38] VITALS: BP 102/58
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
--- NOTE | 2019-08-31 19:38 | NUR ---
PT RESTING QUIETLY ON GURNEY, REPOSITIONED FOR COMFORT. NONSLIP SOCKS ON, CALL LIGHT IN HAND.
--- NOTE | 2019-08-31 20:09 | NUR ---
PT REPOSITIONED ON GURNEY FOR COMFORT, PROVIDED W/ WARM BLANKETS. CALL LIGHT IN HAND.
--- NOTE | 2019-08-31 21:06 | NUR ---
REPORT TO MINERVA COLLAZO.
--- NOTE | 2019-08-31 21:35 | NUR ---
POC IS DC PENDING RECORDS FROM [facility]. AWAITING RECORDS. [facility].
--- NOTE | 2019-08-31 22:12 | NUR ---
ERP TO BS TO EVAL PATIENT. PT NO LONGER IN ROOM. ALL BELONGINGS GONE AND GOWN ON GURNEY. PT ASSUMED TO HAVE LEFT.
== END 2019-08-31 22:13 | disposition home or self-care (01) ==
LOC: ED 19:25
DX: S39.012A Strain of muscle, fascia and tendon of lower back, initial encounter (principal); F10.229 Alcohol dependence with intoxication, unspecified; I10 Essential (primary) hypertension; K21.9 Gastro-esophageal reflux disease without esophagitis; F17.200 Nicotine dependence, unspecified, uncomplicated; W19.XXXA Unspecified fall, initial encounter; Y93.89 Activity, other specified; Y92.89 Other specified places as the place of occurrence of the external cause; Y99.8 Other external cause status; Y90.9 Presence of alcohol in blood, level not specified
CPT/HCPCS: 72110; 99283

== ENCOUNTER 2019-09-22 14:11 | Emergency (ER) | payer MEDICARE ==
[~2019-09-22] VITALS: Ht 175.3 cm; Wt 63.0 kg
--- NOTE | 2019-09-22 14:32 | NUR ---
TASK RN: PT HERE WITH C/O DIFFUSE ABDOMINAL PAIN, GENERALIZED, AND CONSTIPATION. PT STATES NO NAUSEA OR VOMITTING OR DIARRHEA BUT "I HAVEN'T EATEN ANYTHING." PT AAO X 4, DRESSED IN GOWN, ATTACHED TO MONITOR, CALL LIGHT WITHIN REACH AND SIDERAIL X [address] PT ON ROOM AIR, NAD.
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
[2019-09-22] MEDS ORDERED: LORazepam 2 MG/ML, 1ML IVPush ONE (15:00)
[2019-09-22] MEDS ORDERED: SODIUM CHLORIDE 0.9% 1,000ML IVBOLUS ONE (15:00)
[2019-09-22] MEDS ORDERED: ONDANSETRON 2MG/ML, 2ML IVPush ONE (15:00)
[2019-09-22] MEDS ORDERED: ONDANSETRON 2MG/ML, 2ML ONE (15:15)
[2019-09-22] MEDS ORDERED: LORazepam 2 MG/ML, 1ML ONE (15:16)
--- NOTE | 2019-09-22 16:00 | NUR ---
PT RESTING IN BED, CALL LIGHT IN REACH
[2019-09-22 16:08] LABS: BASOPHILS # (AUTO) 0.01 x10^3/uL (0-0.1); BASOPHILS % (AUTO) 0 % (0-1); EOSINOPHILS % (AUTO) 1 % (1-7); LYMPHOCYTES # (AUTO) 1.59 x10^3/uL (1-3.4); LYMPHOCYTES % (AUTO) 16 % (22-44); MD NO; MEAN CORPUSCULAR HEMOGLOBIN 29.7 pg (27.5-34.5); MEAN CORPUSCULAR HGB CONC 32.4 g/dL (33.2-36.2); MEAN CORPUSCULAR VOLUME 91.7 fL (81-97); MEAN PLATELET VOLUME 7.4 fL (7.4-10.4); MONOCYTES # (AUTO) 0.58 x10^3/uL (0.2-0.8); MONOCYTES % (AUTO) 6 % (2-9); NEUTROPHILS # (AUTO) 7.66 x10^3/uL (1.8-6.8); NEUTROPHILS % (AUTO) 77 % (42-75); PLATELET COUNT 308 x10^3/uL (130-400); RED BLOOD COUNT 4.55 x10^6/uL (4.38-5.82); RED CELL DISTRIBUTION WIDTH 18.9 % (9.4-14.8)
[2019-09-22 16:13] LABS: MICROSCOPIC AUTO
[2019-09-22 16:20] LABS: CULTURE INDICATED? NO
[2019-09-22 16:21] LABS: ALANINE AMINOTRANSFERASE 16 U/L (12-78); ALBUMIN 3.5 g/dL (3.4-5.0); ANION GAP 12 mmol/L (5-15); CHLORIDE 97 mmol/L (98-107); CREATININE 0.94 mg/dL (0.7-1.3)
[2019-09-22 16:23] LABS: ALKALINE PHOSPHATASE 116 U/L (45-117); BILIRUBIN,TOTAL 0.3 mg/dL (0.2-1.0); TOTAL PROTEIN 7.3 g/dL (6.4-8.2)
--- NOTE | 2019-09-22 17:00 | NUR ---
ORAL CONTRAST PROVIDED
--- NOTE | 2019-09-22 17:46 | NUR ---
PT RESTING IN BED, CONTRAST ALMOST COMPLETED
--- NOTE | 2019-09-22 17:59 | NUR ---
CT AWARE PT FINISHED CONTRAST
--- NOTE | 2019-09-22 18:41 | NUR ---
WAITING FOR CT SCAN, PT RESTING IN BED.
--- NOTE | 2019-09-22 19:01 | NUR ---
Report received from MINERVA Sosa. This RN to assume care. Patient resting in [facility].
[2019-09-22] MEDS ORDERED: OMNIPAQUE 350 MG/ML, 100ML BOTTLE ONE (19:13)
[2019-09-22] MEDS ORDERED: OXYcodone/APAP 5/325MG TABLET ONE ×3 (19:20→21:07)
--- NOTE | 2019-09-22 19:24 | NUR ---
Attempted to medicate patient for pain per mar, however patient sleeping heavily. Holding meds.
[2019-09-22] MEDS ORDERED: OXYcodone/APAP 5/325MG TABLET PO ONE ×2 (19:30→21:30)
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
[2019-09-22 21:09] VITALS: BP 157/87
--- NOTE | 2019-09-22 21:25 | NUR ---
LSO device applied. Discharge instructions given. All questions and concerns addressed. Patient ambulatory with a steady gait. Belongings with patient.
== END 2019-09-22 21:28 | disposition home or self-care (01) ==
LOC: ED 14:16
DX: S32.019A Unspecified fracture of first lumbar vertebra, initial encounter for closed fracture (principal); S32.029A Unspecified fracture of second lumbar vertebra, initial encounter for closed fracture; I74.09 Other arterial embolism and thrombosis of abdominal aorta; K85.90 Acute pancreatitis without necrosis or infection, unspecified; J98.11 Atelectasis; I10 Essential (primary) hypertension; J44.9 Chronic obstructive pulmonary disease, unspecified; F10.21 Alcohol dependence, in remission; Z88.0 Allergy status to penicillin; Z87.891 Personal history of nicotine dependence
CPT/HCPCS: 36415; 71046; 74177; 80053; 80307; 81001; 83690; 85025; 96361; 96374; 96375; 99284; J2060; J2405; J7030; Q9967

== ENCOUNTER 2019-10-07 08:11 | Emergency (ER) | payer MEDICARE ==
[~2019-10-07] VITALS: Ht 175.3 cm; Wt 62.0 kg
[2019-10-07 08:31] VITALS: BP 135/81
[2019-10-07] MEDS ORDERED: CEPHALEXIN 500 MG CAPSULE ONE (09:07)
[2019-10-07] MEDS ORDERED: SULFAMETH./TRIMETHOPRIM DS 800MG/160MG TABLET ONE (09:07)
[2019-10-07] MEDS ORDERED: CYCLOBENZAPRINE 10 MG TABLET ONE (09:07)
[2019-10-07] MEDS ORDERED: CEPHALEXIN 500 MG CAPSULE PO ONE (09:30)
[2019-10-07] MEDS ORDERED: CYCLOBENZAPRINE 10 MG TABLET PO ONE (09:30)
[2019-10-07] MEDS ORDERED: SULFAMETH./TRIMETHOPRIM DS 800MG/160MG TABLET PO ONE (09:30)
== END 2019-10-07 10:23 | disposition home or self-care (01) ==
LOC: ED 08:37
DX: S32.009A Unspecified fracture of unspecified lumbar vertebra, initial encounter for closed fracture (principal); M51.36 Other intervertebral disc degeneration, lumbar region; L08.9 Local infection of the skin and subcutaneous tissue, unspecified; K21.9 Gastro-esophageal reflux disease without esophagitis; I10 Essential (primary) hypertension; E87.1 Hypo-osmolality and hyponatremia; E83.42 Hypomagnesemia; W10.0XXA Fall (on)(from) escalator, initial encounter; Y93.89 Activity, other specified; Y92.89 Other specified places as the place of occurrence of the external cause; Y99.8 Other external cause status
CPT/HCPCS: 99284

== ENCOUNTER 2019-10-15 20:52 | Emergency (ER) | payer MEDICARE ==
[~2019-10-15] VITALS: Ht 175.3 cm; Wt 66.9 kg
[2019-10-15 21:20] VITALS: BP 174/106
[2019-10-15] MEDS ORDERED: KETOROLAC 30 MG/1 ML IM ONE (22:30)
[2019-10-15] MEDS ORDERED: ONDANSETRON ODT 4 MG PO ONE (22:30)
[2019-10-15] MEDS ORDERED: METHOCARBAMOL 750 MG TABLET PO ONE (22:30)
[2019-10-15] MEDS ORDERED: ONDANSETRON ODT 4 MG ONE (22:31)
[2019-10-15] MEDS ORDERED: KETOROLAC 30 MG/1 ML ONE (22:31)
[2019-10-15] MEDS ORDERED: METHOCARBAMOL 750 MG TABLET ONE (22:34)
== END 2019-10-15 23:08 | disposition home or self-care (01) ==
LOC: ED 21:30
DX: G89.29 Other chronic pain (principal); M54.5 Low back pain; K21.9 Gastro-esophageal reflux disease without esophagitis; I10 Essential (primary) hypertension
CPT/HCPCS: 96372; 99283; J1885; Q0162

== ENCOUNTER 2019-10-26 19:20 | Emergency (ER) | payer MEDICARE ==
[~2019-10-26] VITALS: Ht 175.3 cm; Wt 60.0 kg
[2019-10-26 19:45] VITALS: BP 139/76
== END 2019-10-26 19:57 | disposition left against medical advice (07) ==
LOC: EDBD 19:50 → ED 19:50
DX: M54.9 Dorsalgia, unspecified (principal); F10.129 Alcohol abuse with intoxication, unspecified; Y90.9 Presence of alcohol in blood, level not specified; Z53.21 Procedure and treatment not carried out due to patient leaving prior to being seen by health care provider

== ENCOUNTER 2019-10-30 06:10 | Emergency (ER) | payer MEDICAID ==
[2019-10-30] MEDS ORDERED: KETOROLAC 30 MG/1 ML IM ONE (06:30)
[2019-10-30] MEDS ORDERED: PLEASE ENTER ALLERGIES MC SCH (06:30)
[2019-10-30] MEDS ORDERED: METHOCARBAMOL 750 MG TABLET PO ONE (06:30)
== END 2019-10-30 06:22 | disposition home or self-care (01) ==
LOC: EDBD → ED 06:16 → MERGE 06:24 → ED 06:28
DX: Z02.9 Encounter for administrative examinations, unspecified (principal)

== ENCOUNTER 2019-10-30 06:16 | Emergency (ER) | payer MEDICARE ==
[~2019-10-30] VITALS: Ht 175.3 cm; Wt 68.0 kg
[2019-10-30] MEDS ORDERED: METHOCARBAMOL 750 MG TABLET PO ONE (06:30)
[2019-10-30] MEDS ORDERED: KETOROLAC 30 MG/1 ML IM ONE (06:30)
[2019-10-30] MEDS ORDERED: HYDROcodone/APAP 5/325 TABLET PO ONE (06:30)
[2019-10-30] MEDS ORDERED: KETOROLAC 30 MG/1 ML ONE (06:49)
[2019-10-30] MEDS ORDERED: METHOCARBAMOL 750 MG TABLET ONE (06:49)
[2019-10-30] MEDS ORDERED: HYDROcodone/APAP 5/325 TABLET ONE (06:50)
--- NOTE | 2019-10-30 07:09 | NUR ---
RECEIVED REPORT FROM MINERVA LOPEZ. PT SITTING IN BED, RESPIRATIONS EVEN AND UNLABORED, NO SIGNS OF DISTRESS.
[2019-10-30 07:26] VITALS: BP 133/75
== END 2019-10-30 07:29 | disposition home or self-care (01) ==
LOC: ED 07:18
DX: M54.5 Low back pain (principal); K21.9 Gastro-esophageal reflux disease without esophagitis
CPT/HCPCS: 96372; 99283; J1885

== ENCOUNTER 2019-10-31 17:15 | Emergency (ER) | payer MEDICARE ==
[~2019-10-31] VITALS: Ht 175.3 cm; Wt 68.0 kg
--- NOTE | 2019-10-31 17:23 | NUR ---
PATIENT ARRIVES WITH [facility] FROM [place] [facility] AND SMELLS OF ETOH WITH A BREATHYLYZER OF 0.361. PATIENT STATES BACK PAIN AND IS RAMBLING ABOUT GAMBLING.
[2019-10-31 17:24] VITALS: BP 158/89
--- NOTE | 2019-10-31 19:27 | NUR ---
BREAK RN: PT RESTING IN ROOM. VS STABLE. CALL LIGHT IN PLACE. WILL CONTINUE TO MONITOR WHILE PRIMARY RN IS ON BREAK.
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
== END 2019-10-31 20:06 | disposition left against medical advice (07) ==
LOC: ED 20:00
DX: F10.220 Alcohol dependence with intoxication, uncomplicated (principal); M54.9 Dorsalgia, unspecified; Y90.9 Presence of alcohol in blood, level not specified
CPT/HCPCS: 99283

== ENCOUNTER 2019-11-05 15:06 | Emergency (ER) | payer MEDICARE ==
[~2019-11-05] VITALS: Ht 175.3 cm; Wt 62.3 kg
[2019-11-05] MEDS ORDERED: SODIUM CHLORIDE FLUSH 10ML SYR IVF ONE (15:30)
[2019-11-05 15:50] LABS: RAPID INFLUENZA A Negative (Negative); RAPID INFLUENZA B Negative (Negative)
[2019-11-05 16:17] LABS: BASOPHILS # (AUTO) 0.03 x10^3/uL (0-0.1); BASOPHILS % (AUTO) 0 % (0-1); EOSINOPHILS # (AUTO) 0.03 x10^3/uL (0-0.4); EOSINOPHILS % (AUTO) 0 % (1-7); LYMPHOCYTES # (AUTO) 1.68 x10^3/uL (1-3.4); LYMPHOCYTES % (AUTO) 22 % (22-44); MD NO; MEAN CORPUSCULAR HEMOGLOBIN 29.4 pg (27.5-34.5); MEAN CORPUSCULAR HGB CONC 32.9 g/dL (33.2-36.2); MEAN CORPUSCULAR VOLUME 89.4 fL (81-97); MEAN PLATELET VOLUME 8.3 fL (7.4-10.4); MONOCYTES # (AUTO) 0.53 x10^3/uL (0.2-0.8); MONOCYTES % (AUTO) 7 % (2-9); NEUTROPHILS # (AUTO) 5.39 x10^3/uL (1.8-6.8); NEUTROPHILS % (AUTO) 70 % (42-75); PLATELET COUNT 159 x10^3/uL (130-400); RED BLOOD COUNT 4.31 x10^6/uL (4.38-5.82); RED CELL DISTRIBUTION WIDTH 16.9 % (9.4-14.8)
[2019-11-05 16:24] LABS: ALBUMIN 3.3 g/dL (3.4-5.0); ANION GAP 16 mmol/L (5-15); CALCIUM 8.6 mg/dL (8.5-10.1); CHLORIDE 91 mmol/L (98-107)
[2019-11-05 16:24] LABS: MICROSCOPIC AUTO
[2019-11-05 16:25] LABS: CULTURE INDICATED? NO
[2019-11-05 16:28] LABS: ALANINE AMINOTRANSFERASE 52 U/L (12-78); ALKALINE PHOSPHATASE 90 U/L (45-117); BILIRUBIN,TOTAL 0.7 mg/dL (0.2-1.0); CREATININE 0.99 mg/dL (0.7-1.3); TOTAL PROTEIN 6.4 g/dL (6.4-8.2)
[2019-11-05] MEDS ORDERED: SODIUM CHLORIDE 0.9% 1,000ML IVBOLUS ONE (17:00)
[2019-11-05] MEDS ORDERED: KETOROLAC 30 MG/1 ML ONE (17:45)
[2019-11-05] MEDS ORDERED: KETOROLAC 30 MG/1 ML IVPush ONE (18:00)
[2019-11-05 18:42] VITALS: BP 133/88
--- NOTE | 2019-11-05 18:42 | NUR ---
CAB VOUCHER PROVIDED
== END 2019-11-05 18:45 | disposition home or self-care (01) ==
LOC: ED 18:30
DX: E87.1 Hypo-osmolality and hyponatremia (principal); R10.10 Upper abdominal pain, unspecified; R19.7 Diarrhea, unspecified; R05 Cough; K21.9 Gastro-esophageal reflux disease without esophagitis; J44.9 Chronic obstructive pulmonary disease, unspecified
CPT/HCPCS: 36415; 74022; 80053; 81001; 85025; 87400; 93005; 96361; 96374; 99285; J1885; J7030

== ENCOUNTER 2020-01-18 07:28 | Emergency (ER) | payer MEDICARE, MEDICAID ==
[~2020-01-18] VITALS: Ht 167.6 cm; Wt 67.0 kg
[~2020-01-18 07:28] MED LIST changes: +HYDR-3246 PO; -HYDR-36 PO; +METO25TA91 PO; +MULT-449 PO; -MULT1TAB60 PO; +NYST15CR TP; -NYST15CR33 TP; +QUET25TA7 PO
--- NOTE | 2020-01-18 07:41 | NUR ---
CASEY-Jaswinder IS AT THE BEDSIDE FOR ASSESSMENT
--- NOTE | 2020-01-18 07:47 | NUR ---
pt to xr w tech
--- NOTE | 2020-01-18 08:27 | NUR ---
urine sample provided and walked to the lab for analysis. pt now sleeping sonorously on an ER gurney with supplemental O2 applied for positional hypoxia. room air 88% while sleeping. i will continue to monitor and treat as ordered, as well as prn while awaiting the results of diagnostics.
[2020-01-18 08:32] LABS: MICROSCOPIC AUTO
[2020-01-18 10:13] VITALS: BP 161/82
== END 2020-01-18 10:40 | disposition home or self-care (01) ==
LOC: ED 08:26
DX: S32.019A Unspecified fracture of first lumbar vertebra, initial encounter for closed fracture (principal); R30.0 Dysuria; F10.120 Alcohol abuse with intoxication, uncomplicated; R94.31 Abnormal electrocardiogram [ECG] [EKG]; W01.0XXA Fall on same level from slipping, tripping and stumbling without subsequent striking against object, initial encounter; Y93.89 Activity, other specified; Y92.410 Unspecified street and highway as the place of occurrence of the external cause; Y99.8 Other external cause status; Y90.9 Presence of alcohol in blood, level not specified
CPT/HCPCS: 72110; 81001; 93005; 99285

== ENCOUNTER 2020-01-21 09:56 | Emergency (ER) | payer MEDICARE ==
[~2020-01-21] VITALS: Ht 175.3 cm; Wt 68.2 kg
[~2020-01-21 09:56] MED LIST changes: -MULT-449 PO; +MULT1TAB60 PO
[2020-01-21 11:06] VITALS: BP 126/76
--- NOTE | 2020-01-21 11:06 | NUR ---
PT SLEEPING COMFORTABLY ON GURNEY, RESPONDS APPROP TO STAFF WHEN AWAKENED, NAD, NO NEEDS AT THIS TIME, CALL LIGHT WITHIN REACH.
--- NOTE | 2020-01-21 12:24 | NUR ---
PT ELOPED PRIOR TO DC INSTRUCTIONS GIVEN.
== END 2020-01-21 12:26 | disposition left against medical advice (07) ==
LOC: ED 11:20
DX: S20.211A Contusion of right front wall of thorax, initial encounter (principal); S00.03XA Contusion of scalp, initial encounter; I10 Essential (primary) hypertension; K21.9 Gastro-esophageal reflux disease without esophagitis; F17.200 Nicotine dependence, unspecified, uncomplicated; Y08.89XA Assault by other specified means, initial encounter; Y93.89 Activity, other specified; Y92.830 Public park as the place of occurrence of the external cause; Y99.8 Other external cause status
CPT/HCPCS: 70450; 99284

== ENCOUNTER 2020-01-21 20:42 | Emergency (ER) | payer MEDICARE ==
[2020-01-21 20:50] VITALS: BP 134/82
== END 2020-01-21 22:25 | disposition home or self-care (01) ==
LOC: ED 22:00
DX: S20.212A Contusion of left front wall of thorax, initial encounter (principal); R07.89 Other chest pain; I10 Essential (primary) hypertension; F17.200 Nicotine dependence, unspecified, uncomplicated; F10.120 Alcohol abuse with intoxication, uncomplicated; Y04.8XXA Assault by other bodily force, initial encounter; Y93.89 Activity, other specified; Y92.89 Other specified places as the place of occurrence of the external cause; Y99.8 Other external cause status; Y90.0 Blood alcohol level of less than 20 mg/100 ml
CPT/HCPCS: 99283

== ENCOUNTER 2020-01-26 01:25 | Emergency (ER) | payer MEDICARE, MEDICAID ==
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
[2020-01-26] MEDS ORDERED: ALBUTEROL MDI (01:33)
--- NOTE | 2020-01-26 01:45 | NUR ---
patient to CT scan.
[2020-01-26] MEDS ORDERED: ALBUTEROL/IPRATROPIUM 2.5MG/0.5MG, 3 ML ONE (01:59)
[2020-01-26] MEDS ORDERED: ALBUTEROL/IPRATROPIUM 2.5MG/0.5MG, 3 ML NPPB ONE (02:00)
--- NOTE | 2020-01-26 02:00 | NUR ---
Breathing treatment done.
--- NOTE | 2020-01-26 02:16 | NUR ---
back from CT scan. X ray at bedside.
[2020-01-26 02:41] LABS: BASOPHILS # (AUTO) 0.02 x10^3/uL (0-0.1); BASOPHILS % (AUTO) 1 % (0-1); EOSINOPHILS # (AUTO) 0.09 x10^3/uL (0-0.4); EOSINOPHILS % (AUTO) 2 % (1-7); LYMPHOCYTES # (AUTO) 1.64 x10^3/uL (1-3.4); LYMPHOCYTES % (AUTO) 32 % (22-44); MD NO; MEAN CORPUSCULAR HEMOGLOBIN 28.8 pg (27.5-34.5); MEAN CORPUSCULAR HGB CONC 32.7 g/dL (33.2-36.2); MEAN CORPUSCULAR VOLUME 88.2 fL (81-97); MEAN PLATELET VOLUME 7.5 fL (7.4-10.4); MONOCYTES # (AUTO) 0.32 x10^3/uL (0.2-0.8); MONOCYTES % (AUTO) 6 % (2-9); NEUTROPHILS # (AUTO) 3.03 x10^3/uL (1.8-6.8); NEUTROPHILS % (AUTO) 59 % (42-75); PLATELET COUNT 175 x10^3/uL (130-400); RED BLOOD COUNT 4.03 x10^6/uL (4.38-5.82); RED CELL DISTRIBUTION WIDTH 20.7 % (9.4-14.8)
[2020-01-26 02:43] LABS: ALANINE AMINOTRANSFERASE 29 U/L (12-78); ALBUMIN 3.9 g/dL (3.4-5.0); ANION GAP 11 mmol/L (5-15); CALCIUM 8.5 mg/dL (8.5-10.1); CHLORIDE 109 mmol/L (98-107); CREATININE 1.14 mg/dL (0.7-1.3)
[2020-01-26 02:47] LABS: ALKALINE PHOSPHATASE 87 U/L (45-117); BILIRUBIN,TOTAL 0.3 mg/dL (0.2-1.0); TOTAL PROTEIN 7.5 g/dL (6.4-8.2); TROPONIN I < 0.015 ng/mL (0.000-0.045)
[2020-01-26 02:54] VITALS: BP 154/82
--- NOTE | 2020-01-26 03:01 | NUR ---
pt up and ambulating in room at this time, appears NAD
== END 2020-01-26 03:20 | disposition home or self-care (01) ==
LOC: ED 01:50
DX: J44.1 Chronic obstructive pulmonary disease with (acute) exacerbation (principal); R55 Syncope and collapse; R51 Headache; R00.0 Tachycardia, unspecified; Z76.0 Encounter for issue of repeat prescription; Z72.9 Problem related to lifestyle, unspecified
CPT/HCPCS: 36415; 70450; 71045; 80053; 84484; 85025; 87040; 93005; 94640; 99285

== ENCOUNTER 2020-02-02 09:21 | Emergency (ER) | payer MEDICARE, MEDICAID ==
[~2020-02-02] VITALS: Ht 175.3 cm; Wt 68.0 kg
[~2020-02-02 09:21] MED LIST changes: +ALBUTEROL MDI
--- NOTE | 2020-02-02 09:35 | NUR ---
drank lg amt etoh, c/o nausea/benitez, denies falling, found sleeping on [address]. maintainging airway, speaking w/ doctor in full sentences. bgl 119 per ems. denies seizure hx but takes ativan for wtihdrawals. no trauma to head noted. vss. callbell/fall precs. plan for head ct. as
--- NOTE | 2020-02-02 10:37 | NUR ---
ct head neg. had. resting in bed, fall precs. as
[2020-02-02 10:56] VITALS: BP 116/59
--- NOTE | 2020-02-02 10:56 | NUR ---
eating food, nad. as
== END 2020-02-02 11:32 | disposition home or self-care (01) ==
LOC: ED 09:54
DX: F10.129 Alcohol abuse with intoxication, unspecified (principal); R51 Headache; R11.0 Nausea; R41.82 Altered mental status, unspecified; I10 Essential (primary) hypertension; J44.9 Chronic obstructive pulmonary disease, unspecified; Y90.9 Presence of alcohol in blood, level not specified
CPT/HCPCS: 70450; 99284

== ENCOUNTER 2020-02-04 01:32 | Emergency (ER) | payer MEDICARE, MEDICAID ==
[~2020-02-04] VITALS: Ht 167.6 cm; Wt 75.0 kg
[~2020-02-04 01:32] MED LIST changes: +MULT-449 PO; -MULT1TAB60 PO
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
--- NOTE | 2020-02-04 03:02 | NUR ---
PT RESTING AT THIS TIME. REMAINS ON PIT FURNACE MELTER.
--- NOTE | 2020-02-04 04:00 | NUR ---
PT CONTINUES TO SLEEP. LEATHER NOVELTY PARTS CUTTER REMAINS ON. CALL LIGHT WITHIN REACH.
--- NOTE | 2020-02-04 04:46 | NUR ---
PT AMBULATORY AROUND ER WITH STEADY GAIT.
[2020-02-04 04:47] VITALS: BP 112/59
== END 2020-02-04 04:48 | disposition home or self-care (01) ==
LOC: ED 03:21
DX: F10.120 Alcohol abuse with intoxication, uncomplicated (principal); I44.4 Left anterior fascicular block; K21.9 Gastro-esophageal reflux disease without esophagitis; J44.9 Chronic obstructive pulmonary disease, unspecified; F17.210 Nicotine dependence, cigarettes, uncomplicated; E87.1 Hypo-osmolality and hyponatremia; Z72.9 Problem related to lifestyle, unspecified; Y90.0 Blood alcohol level of less than 20 mg/100 ml
CPT/HCPCS: 93005; 99283; 99406

== ENCOUNTER 2020-02-04 10:53 | Emergency (ER) | payer MEDICARE, MEDICAID ==
[~2020-02-04] VITALS: Ht 175.3 cm; Wt 68.0 kg
[2020-02-04 11:00] VITALS: BP 120/72
--- NOTE | 2020-02-04 11:08 | NUR ---
CT DELAY; AT THIS TIME CODE NEURO TO BE FIRST/ OTHER ROOM HAS BIOPSY
--- NOTE | 2020-02-04 12:01 | NUR ---
TO CT SCAN
--- NOTE | 2020-02-04 12:25 | NUR ---
WITH REASSESSMENT PATIENT REMAINS QUITE DROWSY (ASSUMED INTOXICATION). REQUIRING 2L NC ROOM AIRSAT 87%. PATIENT POSITIONING FOR OPTIMAL VENTILATION IN BED WILL CONTINUE TO MONITOR UNTIL SOBER ENOUGH TO CARE FOR SELF
--- NOTE | 2020-02-04 14:15 | NUR ---
WITH REASSESSMENT PATIENT NOW MUCH MORE ALERT. VOIDED WITHOUT DIFFICULTY. PROVIDED WITH PO FLUIDS/WATER WILL WORK TOWARD ROAD TEST SHORTLY
--- NOTE | 2020-02-04 15:57 | NUR ---
PO CHALLENGE AND ROAD TEST UNREMARKABLE PROVIDED WITH BUS PASS AND CUP OF COFEE AND WALKED TO DISCHARGE DESK
== END 2020-02-04 15:59 | disposition home or self-care (01) ==
LOC: ED 12:55
DX: F10.120 Alcohol abuse with intoxication, uncomplicated (principal); R41.82 Altered mental status, unspecified; I10 Essential (primary) hypertension; Y90.0 Blood alcohol level of less than 20 mg/100 ml
CPT/HCPCS: 70450; 99284

== ENCOUNTER 2020-02-05 10:45 | Emergency (ER) | payer MEDICARE, MEDICAID ==
[~2020-02-05] VITALS: Ht 172.7 cm; Wt 75.0 kg
[2020-02-05 10:51] VITALS: BP 129/76
--- NOTE | 2020-02-05 11:06 | NUR ---
GREG CARRION, PT FOUND "PASSED OUT" IN FRONT OF [place], [facility] CALLED EMS. +ETOH USE TODAY, UNKNOWN AMOUNT. PT WAS HERE YESTERDAY FOR SAME, PT ARROUSABLE WITH VERBAL STIMULI, SLURRED SPEECH AND POSITIVE ETOH ODOR
--- NOTE | 2020-02-05 13:38 | NUR ---
PT AMBULATED STEADILY TO BR.
--- NOTE | 2020-02-05 13:44 | NUR ---
Patient given discharge instructions and they have confirmed that they understand the instructions. Patient ambulatory with steady gait.
== END 2020-02-05 13:46 | disposition home or self-care (01) ==
LOC: ED 13:02
DX: F10.229 Alcohol dependence with intoxication, unspecified (principal); I10 Essential (primary) hypertension; J44.9 Chronic obstructive pulmonary disease, unspecified; Y90.0 Blood alcohol level of less than 20 mg/100 ml
CPT/HCPCS: 99283

== ENCOUNTER 2020-02-05 23:01 | Emergency (ER) | payer MEDICAID, MEDICARE ==
[~2020-02-05] VITALS: Ht 175.3 cm; Wt 68.0 kg
--- NOTE | 2020-02-05 23:20 | NUR ---
pt BIB [facility] for pneumonia that pt was unable to get script filled for. Pt also C/O lower back pain (chronic) and "legs dont work." Reports "i am coughing up some phlegm" and mild SOB but speaking in [facility]. Call light on lap BP/SPO2 monitoring in place.
--- NOTE | 2020-02-05 23:28 | NUR ---
given warm blanket for comfort.
[2020-02-05 23:50] VITALS: BP 134/74
--- NOTE | 2020-02-05 23:56 | NUR ---
Patient given discharge instructions and they have confirmed that they understand the instructions. Patient informed to call [facility] for taxi ride. NAD, VSS, no belongings left in room upon DC.
[2020-02-06] MEDS ORDERED: ACETAMINOPHEN 500 MG TABLET PO ONE
== END 2020-02-05 23:58 | disposition home or self-care (01) ==
LOC: ED 23:30
DX: F10.120 Alcohol abuse with intoxication, uncomplicated (principal); G89.29 Other chronic pain; M54.5 Low back pain; R51 Headache; I10 Essential (primary) hypertension; J44.9 Chronic obstructive pulmonary disease, unspecified; K21.9 Gastro-esophageal reflux disease without esophagitis; E87.1 Hypo-osmolality and hyponatremia; F17.210 Nicotine dependence, cigarettes, uncomplicated; Y90.0 Blood alcohol level of less than 20 mg/100 ml
CPT/HCPCS: 99283; 99406

== ENCOUNTER 2020-02-06 19:19 | Emergency (ER) | payer MEDICARE ==
[2020-02-06 19:26] VITALS: BP 165/97
[2020-02-06 20:15] LABS: BASOPHILS % (AUTO) 2 % (0-1); EOSINOPHILS # (AUTO) 0.04 x10^3/uL (0-0.4); EOSINOPHILS % (AUTO) 1 % (1-7); LYMPHOCYTES # (AUTO) 1.97 x10^3/uL (1-3.4); LYMPHOCYTES % (AUTO) 43 % (22-44); MD NO; MEAN CORPUSCULAR HEMOGLOBIN 29.3 pg (27.5-34.5); MEAN CORPUSCULAR HGB CONC 33.1 g/dL (33.2-36.2); MEAN CORPUSCULAR VOLUME 88.4 fL (81-97); MEAN PLATELET VOLUME 7.2 fL (7.4-10.4); MONOCYTES # (AUTO) 0.51 x10^3/uL (0.2-0.8); MONOCYTES % (AUTO) 11 % (2-9); NEUTROPHILS # (AUTO) 1.96 x10^3/uL (1.8-6.8); NEUTROPHILS % (AUTO) 43 % (42-75); PLATELET COUNT 380 x10^3/uL (130-400); RED BLOOD COUNT 3.47 x10^6/uL (4.38-5.82); RED CELL DISTRIBUTION WIDTH 21.2 % (9.4-14.8)
[2020-02-06 20:24] LABS: ALANINE AMINOTRANSFERASE 29 U/L (12-78); ALBUMIN 3.5 g/dL (3.4-5.0); ANION GAP 10 mmol/L (5-15); CALCIUM 8.5 mg/dL (8.5-10.1); CHLORIDE 106 mmol/L (98-107); CREATININE 1.33 mg/dL (0.7-1.3)
[2020-02-06 20:26] LABS: ALKALINE PHOSPHATASE 77 U/L (45-117); BILIRUBIN,TOTAL 0.4 mg/dL (0.2-1.0); TOTAL PROTEIN 6.9 g/dL (6.4-8.2)
--- NOTE | 2020-02-06 21:02 | NUR ---
Pt ambulated down hallway with no assistance. Pt a&ox4, complaining of only his chronic back pain.
== END 2020-02-06 22:05 | disposition home or self-care (01) ==
LOC: ED 21:41
DX: M79.2 Neuralgia and neuritis, unspecified (principal); F10.129 Alcohol abuse with intoxication, unspecified; I10 Essential (primary) hypertension; Y90.9 Presence of alcohol in blood, level not specified
CPT/HCPCS: 36415; 80053; 83690; 85025; 99283

== ENCOUNTER 2020-04-16 04:04 | Emergency (ER) | payer MEDICARE, MEDICAID ==
[~2020-04-16] VITALS: Ht 175.3 cm; Wt 66.0 kg
--- NOTE | 2020-04-16 04:23 | NUR ---
REPORT TO JOHNNY RN
--- NOTE | 2020-04-16 04:29 | NUR ---
PATIENT STATED HITTING HEAD EARLIER TODAY, STATES FEELING NAUSEAS, AND HASNT BEEN EATING RIGHT. NO OBVIOUS SIGNS OF TRAUMA ON HEAD, CLEAR SPEECH, PATIENT COVERED IN BLAKETS, ON MONITORS, SAFETY PRECAUTIONS IN PLACE, NO S/S OF ACUTE DISTRESS.
[2020-04-16] MEDS ORDERED: ONDANSETRON ODT 4 MG PO ONE (05:00)
[2020-04-16] MEDS ORDERED: ONDANSETRON ODT 4 MG ONE (05:12)
--- NOTE | 2020-04-16 05:42 | NUR ---
PATIENT STATES FEELING "A LITTLE BETTER" FROM MEDICATION
[2020-04-16 05:44] VITALS: BP 129/68
== END 2020-04-16 06:17 | disposition home or self-care (01) ==
LOC: ED 05:53
DX: F10.220 Alcohol dependence with intoxication, uncomplicated (principal); I44.4 Left anterior fascicular block; I11.9 Hypertensive heart disease without heart failure; R94.31 Abnormal electrocardiogram [ECG] [EKG]; J44.9 Chronic obstructive pulmonary disease, unspecified; K21.9 Gastro-esophageal reflux disease without esophagitis; Z72.9 Problem related to lifestyle, unspecified; Y90.9 Presence of alcohol in blood, level not specified
CPT/HCPCS: 93005; 99283; Q0162